=== PATIENT | male | born 1955 | race Caucasian/White ===

== ENCOUNTER 2017-06-15 18:28 | Observation (INO) ==
[2017-06-15 19:10] LABS: MANUAL DIFF NEEDED? NO
[2017-06-15 19:37] LABS: INR 0.88 (0.86-1.15); PROTIME 12.7 Seconds (12.1-15.5)
[2017-06-15 19:40] LABS: BASO% 0.1 % (0.0-0.8); EOS# 0.05 X1000 (0.0-0.7); EOS% 0.6 % (0.0-10.0); HEMATOCRIT 19.9 % (42.0-52.0); HEMOGLOBIN 6.1 g/dL (14.0-18.0); IMM GRAN# 0.03 X1000 (0.0-0.04); IMM GRAN% 0.4 % (0.0-0.5); LYMPH# 1.51 X1000 (1.2-3.4); LYMPH% 19.5 % (20.5-51.1); MCH 29.5 PG (27-31); MCHC 30.7 g/dL (33-37); MCV 96.1 FL (81-99); MONO# 0.57 X1000 (0.11-0.59); MONO% 7.4 % (1.7-9.3); PLT 265 X1000 (130-400); RBC 2.07 XMIL (4.7-6.1)
[2017-06-15 19:46] LABS: AGAP 10; ALBUMIN 3.8 g/dL (3.5-5.0); ALKALINE PHOSPHATASE 38 U/L (32-122); AMYLASE 58 U/L (20-200); BUN 42 mg/dL (8-22); CALCIUM 8.5 mg/dL (8.8-10.2); CHLORIDE 107 mmol/L (98-107); COSMO 294; GOT 18 U/L (10-34); GPT 19 U/L (10-44); LIPASE 49 U/L (13-60); POTASSIUM 5.8 mmol/L (3.5-5.1); SODIUM 139 mmol/L (136-145); TCO2 22 mmol/L (25-35); TOTAL BILIRUBIN < 0.15 mg/dL (0.20-1.00)
--- NOTE | 2017-06-15 20:11 | PROVIDER DOCUMENTATION ---
This chart was entered by Madisyn Evans Scribe, acting as scribe for Alessio Washington MD. HPI-General Adult - General Chief Complaint: Rectal Bleeding Stated Complaint: RECTAL BLEEDING Time Seen by Provider: 06/15/17 19:57 Source: patient Allergies/Adverse Reactions: Patient Allergies Allergy/AdvReac Type Severity Reaction Status Date / Time No Known Allergies Allergy Verified 06/15/17 18:42 Home Medications: Home Medication List Medication Instructions Recorded Confirmed Last Taken Type Aspirin [Lo-Dose Aspirin EC] 81 mg PO DAILY 06/15/17 06/15/17 06/15/17 History Atorvastatin Calcium [Atorvastatin 40 mg PO DAILY 06/15/17 06/15/17 06/15/17 History Calcium] Baclofen 20 mg PO Q6HR 06/15/17 06/15/17 06/15/17 History Fenofibrate [Fenofibrate] 160 mg PO DAILY 06/15/17 06/15/17 06/15/17 History Gabapentin 600 mg PO Q6HR 06/15/17 06/15/17 06/15/17 History Glimepiride [Glimepiride] 4 mg PO BID 06/15/17 06/15/17 06/15/17 History Losartan Potassium [Losartan 100 mg PO DAILY 06/15/17 06/15/17 06/15/17 History Potassium] Metoprolol Tartrate [Metoprolol 25 mg PO BID 06/15/17 06/15/17 06/15/17 History Tartrate] Pioglitazone HCl [Pioglitazone HCl] 15 mg PO DAILY 06/15/17 06/15/17 06/15/17 History Saxagliptin HCl/Metformin HCl 1,000 mg PO BID 06/15/17 06/15/17 06/15/17 History [Kombiglyze Xr 2.5-1,000 mg Tab] - History of Present Illness -Gen Adult Nature of Presenting Problems: 61 Y/O M presents to ER with the complain of rectal bleeding X1 week. pt states that he only bleeds when uses bathroom. pt states that he feels week and denies any active bleeding. Location of Pain/Injury: reports: genitalia (rectal bleeding) Pain Radiation: reports: no radiation Quality of Pain: reports: none Severity: reports: mild Onset/Duration: reports: 1 week ago Timing: reports: still present Associated Symptoms: reports: other (rectal bleeding) Review of Systems - Adult - REVIEW OF SYSTEMS - ADULT Constitutional: reports: no symptoms reported Eyes: reports: no symptoms reported Ears, Nose, Mouth & Throat: reports: no symptoms reported Cardiovascular: reports: no symptoms reported Respiratory: reports: no symptoms reported Gastrointestinal: reports: rectal bleeding. denies: nausea, vomiting Genitourinary: reports: no symptoms reported Musculoskeletal: reports: other (bilat leg weakness). denies: back pain Integumentary: reports: no symptoms reported Neurological: reports: no symptoms reported Psychiatric: reports: no symptoms reported Endocrine: reports: no symptoms reported Hematologic/Lymphatic: reports: no symptoms reported Allergic/Immunologic: reports: no symptoms reported All Other Systems: Reviewed and Negative Past History - Adult - PAST MEDICAL HISTORY-ADULT Review of Records: reports: Old Records Reviewed, Nursing Assessment Review, Medications Reviewed, Social history reviewed & non-contributory. Major Childhood Illnesses: reports: denies history Cardiovascular: reports: denies history Respiratory: reports: denies history Gastrointestinal: reports: denies history Genitourinary: reports: denies history Musculoskeletal: reports: denies history Neurological: reports: denies history Endocrine/Immune: reports: Diabetes (NIDDM) - PRIOR SURGERIES/PROCEDURES Surgical/Procedure History: reports: other (back, lympectomy, and stent) - IMMUNIZATION STATUS Childhood Immunizations: See Nurse Assessment Flu Vaccine: See Nurse Assessment Physical Exam-General - PHYSICAL EXAM-ADULT Initial Vital Signs Reviewed: Yes - CONSTITUTIONAL General Appearance: appears well, alert - EYES Eyes: PERRL/EOMI, pink conjunctivae - HEAD, EARS, NOSE, MOUTH & THROAT HENMT: moist mucous membranes, normal ENT inspection - NECK Neck: non-tender, full range of motion, supple - RESPIRATORY Respiratory: chest non-tender, lungs clear, normal breath sounds - CARDIOVASCULAR Cardiovascular: normal peripheral pulses, regular rate, rhythm - GASTROINTESTINAL (ABDOMEN) Abdominal Exam: normal bowel sounds, non tender, soft - GENITOURINARY Rectal Exam: hemorrhoids (internal). negative: blood streaked stool, mass, tenderness - MUSCULOSKELETAL Back Exam: normal inspection, no CVA tenderness, no vertebral tenderness Extremity: other (bilat leg weakness). negative: swelling, tenderness - SKIN Integumentary: normal color, normal turgor, warm/dry - NEUROLOGIC Neurologic: grossly normal, no motor/sensory deficits - PSYCHIATRIC Psych/Mental Status: normal mood/affect, normal thought content, normal thought process, oriented x 3 Progress - PLAN OF CARE/RESULTS Progress/Plan/Lab Results: Vital Signs - 8 hr 06/15/17 18:34 Temperature 97.8 F Pulse Rate 91 H Respiratory Rate 18 Blood Pressure 157/063 O2 Sat by Pulse Oximetry 95 Laboratory Results - last 24 hr 06/15/17 06/15/17 06/15/17 18:55 18:55 18:55 WBC 7.73 RBC 2.07 L Hgb 6.1 L Hct 19.9 L MCV 96.1 MCH 29.5 MCHC 30.7 L RDW Std Deviation 16.0 H Plt Count 265 MPV 10.0 Immature Gran % (Auto) 0.4 Neut % (Auto) 72.0 Lymph % (Auto) 19.5 L [place] % (Auto) 7.4 Eos % (Auto) 0.6 Baso % (Auto) 0.1 Immature Gran # (Auto) 0.03 Neut # (Auto) 5.56 Lymph # (Auto) 1.51 [place] # (Auto) 0.57 Eos # (Auto) 0.05 Baso # (Auto) 0.01 PT 12.7 INR 0.88 APTT (Factor Assay) 32.0 Sodium 139 Potassium 5.8 H Chloride 107 Carbon Dioxide 22 L Anion Gap 10 BUN 42 H Creatinine 2.4 H Estimated GFR/1.73 m2 27 BUN/Creatinine Ratio 18 Glucose 214 H Calculated Osmolality 294 Calcium 8.5 L Total Bilirubin < 0.15 L AST 18 ALT 19 Alkaline Phosphatase 38 Total Protein 6.0 L Albumin 3.8 Globulin 2.0 Albumin/Globulin Ratio 2.0 Amylase 58 Lipase 49 Orders Category Date Time Status Saline Loc DIRECTED Care 06/15/17 18:57 Active NPO Diet 06/15/17 18:57 Active AMYLASE [CHEM] Stat Lab 06/15/17 18:55 Completed CBC WITH ELECTRONIC DIFF [HEME] Stat Lab 06/15/17 18:55 Completed COMPREHENSIVE METABOLIC PANEL [CHEM] Stat Lab 06/15/17 18:55 Completed LIPASE [CHEM] Stat Lab 06/15/17 18:55 Completed OCCULT BLOOD NON-FECES PL Stat Lab 06/15/17 18:57 Uncollected OCCULT BLOOD SCREEN STOOL PL Stat Lab 06/15/17 18:57 Uncollected PROTIME WITH INR PL [COAG] Stat Lab 06/15/17 18:[address] [COAG] Stat Lab 06/15/17 18:55 Completed TYPE & SCREEN [BBK] Stat Lab 06/15/17 18:[address] W/POSS RFLX CULT [URINALYSIS] Stat Lab 06/15/17 18:57 Uncollected 0.9% Sodium Chloride Inj [Ns] 1,000 ml Med 06/15/17 18:57 Active IV 125 mls/hr Result Diagrams: 06/15/17 18:55 06/15/17 18:55 - EKG 1 Time of EKG reading by physician:: 20:42 EKG Read and Signed by:: Alessio Washington EKG Interpretation (*Must complete 3 of following elements*): Normal Rate: 87 Rhythm: Sylvia Sinus Comments: Normal ECG - CONSULTS/PCP/HOSPITALIST Notification #1 *Consult/PCP/Hospitalist*: Dr. Sands Time Discussed: 20:17 Reason/Comments: discussed about pt Consult Disposition: Admit, other (observation) Departure - Departure Date of Disposition Decision: 06/15/17 Time of Disposition Decision: 20:10 DIAGNOSIS: Severe anemia, Paraplegia CAD (coronary artery disease) Qualifiers: Coronary Disease-Associated Artery/Lesion type: unspecified vessel or lesion type [place] vs. transplanted heart: [place] heart Associated angina: without angina Qualified Code(s): I25.10 - Atherosclerotic heart disease of [place] coronary artery without angina pectoris Hemorrhoids Qualifiers: Hemorrhoid type: unspecified Qualified Code(s): K64.9 - Unspecified hemorrhoids Disposition: ADMITTED INPATIENT 09 Certified Medical Emergency: Emergent Condition: Stable - Critical Care Note This patient required my direct & personal management of CC.: Yes Attestation - Physician/ SHILPA Attestation Patient care was provided by Advanced Practice Provider:: No The physician spent face to face time with patient:: Yes Advanced Practice Provider documentation review:: Supervising physician onsite and consulted in the evaluation and care of this patient. The physician did have a face to face encounter with the patient. This chart was documented by the indicated scribe, (Madisyn Evans Scribe) and accurately reflects the services I performed and decisions made by me, Alessio Washington MD, as attested by the provider's signature.
--- NOTE | 2017-06-15 20:47 | EKG Report ---
Test Performed on : 06/15/2017 8:42:42 PM Test Reason : CP Blood Pressure : / mmHG Vent. Rate : 087 BPM Atrial Rate : 087 BPM P-R Int : 184 ms QRS Dur : 086 ms QT Int : 352 ms P-R-T Axes : 072 016 046 degrees QTc Int : 423 ms Normal sinus rhythm. Normal ECG No previous ECGs available Unconfirmed Result
[2017-06-15 20:48] LABS: URINE CULTURE PL NEEDED? NO
[2017-06-15 21:02] LABS: BILIRUBIN URINE NEGATIVE (NEGATIVE); BLOOD URINE NEGATIVE (NEGATIVE); CLARITY CLEAR (CLEAR); COLOR YELLOW; LEUKOCYTES URINE NEGATIVE (NEGATIVE); NITRITE URINE NEGATIVE (NEGATIVE); PROTEIN URINE 2+(100 mg/dL) mg/dL (NEGATIVE); URINE CAST NONE SEEN /LPF; URINE CRYSTAL NONE SEEN /HPF; URINE EPITHELIAL CELLS <10 /HPF (<10); URINE SOURCE CLEAN CATCH; URINE WBC <10 /HPF (<10); UROBILINOGEN URINE NORMAL
[2017-06-15] MEDS ORDERED: NS 250 ML ONE (23:16)
[2017-06-16] MEDS: NS 1,000 ML IV PRN ×2 (05:56→15:02)
[2017-06-16 07:00] LABS: IRON SATURATION 10 %; TIBC 391 ug/dL; TOTAL IRON 38 ug/dL (53-167); UNBOUND IRON 353 ug/dL (112-346)
[2017-06-16 07:10] LABS: RETIC-HE 33.7 PG (28.2-36.6)
[2017-06-16 08:45] LABS: BASO% 0.1 % (0.0-0.8); EOS# 0.08 X1000 (0.0-0.7); EOS% 1.1 % (0.0-10.0); HEMATOCRIT 27.5 % (42.0-52.0); HEMOGLOBIN 8.9 g/dL (14.0-18.0); IMM GRAN# 0.04 X1000 (0.0-0.04); IMM GRAN% 0.5 % (0.0-0.5); LYMPH# 1.36 X1000 (1.2-3.4); LYMPH% 18.2 % (20.5-51.1); MANUAL DIFF NEEDED? YES; MCH 29.4 PG (27-31); MCHC 32.4 g/dL (33-37); MCV 90.8 FL (81-99); MONO# 0.73 X1000 (0.11-0.59); MONO% 9.8 % (1.7-9.3); MPV 10.4 FL (7.4-10.4); NEUT% 70.3 % (42.2-75.2); PLT 196 X1000 (130-400); RBC 3.03 XMIL (4.7-6.1)
[2017-06-16 08:59] LABS: LYMPHS 23 % (21-51); MONO 3 % (1-9)
[2017-06-16 09:13] LABS: OCCULT BLOOD 1 POSITIVE (NEGATIVE)
[2017-06-16 09:35] LABS: CALCIUM 8.4 mg/dL (8.8-10.2)
[2017-06-16 09:42] LABS: HEMOGLOBIN A1C 6.5 % (4.8-6.0)
--- NOTE | 2017-06-16 10:00 | PROGRESS NOTE ---
DATE: 06/16/2017 SUBJECTIVE: Today, Mr. Contreras referred to be doing a whole lot better. He had 2 units of P-RBCs. OBJECTIVE: Vital Signs: Blood pressure is 169/49, pulse of 79, respirations are 18, temperature is 98.4 degrees. General Examination: Mr. Contreras is a 61-year-old, male. He is in bed, not seemingly distressed. HEENT: Mucosa is pink and moist. Anicteric and acyanotic. Neck: Supple. Chest: Clear. No crepitations. Cardiovascular: Regular rate and rhythm. Abdomen: Soft, nontender. Extremities: About 2+ pedal edema. STAGE ELECTRICIAN HELPER: Patient is awake, alert, and oriented. He is a paraplegic secondary to a previous thoracic spine injury. Laboratory Data: WBC is 7.47, hemoglobin is 8.9, platelet count of 197,000. Chemistry is reviewed, unremarkable except for creatinine of 2.4. ASSESSMENT: 1. Symptomatic anemia secondary to chronic gastrointestinal blood loss. Patient is status post 2 units of packed RBC transfusion. We will continue monitoring his hemoglobin and hematocrit. 2. History of coronary artery disease, status post stents noted. 3. Paraplegia due to thoracic spine injury in the past. 4. Diabetes mellitus. We will do a hemoglobin A1c to know how best his sugar has been controlled in the past. 5. Hemorrhoidal bleed. We will get surgery to evaluate the patient for possible surgical intervention if needed. PLAN: We are going to start the patient on all his home medications. We will continue with adequate hydration. We will do a renal ultrasound to check on the renal insufficiency. cc: Vincent Sands MD I went back to review patient later today. He said he is aware of his CKD and follows up with a Concierge Manager in [place]. [facility]
[2017-06-16] MEDS: HUMULIN R SUBQ SCH ×3 (11:04→21:35)
[2017-06-16] MEDS: ANUSOL-HC SUPP PR SCH ×2 (11:16→20:48)
[2017-06-16 11:32] LABS: UR CREAT RANDOM 103.6 mg/dL (14-26)
--- NOTE | 2017-06-16 11:34 | HISTORY AND PHYSICAL ---
PRIMARY CARE PHYSICIAN: Dr. Avila. PRESENTING COMPLAINT: Rectal bleed. HISTORY OF PRESENTING COMPLAINT: Mr. Contreras is a 61-year-old male with a history of paraplegia for the past 5 years, coronary artery disease status post stents since 2000, hypertensive, diabetic, who refers to have been having rectal bleed for the past week. According to Mr. Contreras any time he uses the restroom he would wipe with anat blood on the tissue and since 3 years ago he has been having general fatigue, weakness, occasional dizzy spells whenever he tries to transfer himself from a lying position to a sitting up position. This got so worse that he decided to come to the emergency department yesterday, where he was found to have a hemoglobin level of 6.1 and was deemed necessary for admission. PAST MEDICAL HISTORY: 1. Thoracic cord dissection residual paraplegia. 2. Coronary artery disease status post stents. 3. History of melanoma on the right armpit. 4. Hypertensive. 5. Diabetic. PAST SURGICAL HISTORY: 1. Thoracic vertebra surgery with rods for spine stabilization. 2. Stent in the coronary. 3. Removal of melanoma on right arm. ALLERGIES: None. HOME MEDICATIONS: Include: 1. Gabapentin 600 mg q.6. 2. Baclofen 20 mg q.6. 3. Losartan 100 mg daily. 4. Atorvastatin 40 mg daily. 5. Metoprolol 25 mg b.i.d. 6. Glimepiride 4 mg b.i.d. 7. and metformin. 8. Aspirin 81 mg daily. 9. Pioglitazone 15 mg daily. SOCIAL HISTORY: Patient is . Lives with his . Has kids that are all grown. Has a 30 pack year history but stopped smoking about 10 years ago. Denies alcohol or any illicit drug use. REVIEW OF SYSTEMS: Fourteen point review of system conducted with the patient. Unremarkable except what we have in the HPI. Specifically, patient denies any hematemesis. No coffee ground emesis. No melenic stool. No abdominal pain. No chest pain. No shortness of breath. PHYSICAL EXAMINATION: VITAL SIGNS: Blood pressure is 169/49, respiration is 18, pulse is 79, temperature is 98.4 degrees. GENERAL: Mr. Contreras is a 61-year-old male. He is in bed, not seemingly distressed. HEENT: Mucosa is pink and moist. Anicteric. Acyanotic. Head is normocephalic and atraumatic NECK: Supple. There is no JVD. CHEST: Good air entry bilaterally. No crepitations. No rhonchi. There is no accessory muscle use and no intercostal muscle retractions. CARDIOVASCULAR: Regular rate and rhythm. There are no murmurs, no rubs, no gallops. [place] is at the 5th intercostal space, midclavicular line. ABDOMEN: Soft, nontender. There is no hepatosplenomegaly. Bowel sounds are present. No scars on the anterior abdominal wall. RECTAL: There are multiple skin tags around the anal verge consistent with hemorrhoids. EXTREMITIES: About 2+ pedal edema. Distal pulses are present. CLIENT INSIGHTS CONSULTANT: Patient is awake, alert, oriented x4. Executive function seems to be intact. Did not explore cerebellar function. Cranial nerves 2 through 12 have grossly examined and they are unremarkable. Power is about 2+/5 in the lower extremities. There is a little bit more power on the left lower extremity than the right. All modality of sensation is reduced in the lower extremities. Upper extremities have normal power and sensation. PSYCH: Patient has good judgment and insight of his illness. LABORATORY DATA: WBC is 7.49, hemoglobin is 8.9; this is after 2 PRBC transfusion. Platelet count is 196,000. There are 74% of neutrophils, 23% of lymphocytes, 1+ anisocytosis, and 1+ microcytosis. There is 6.65% reticulocyte count. Chemistry: Sodium is 139, potassium is 5.8, chloride is 107, bicarb is 22, creatinine is 2.5. No imaging studies done today. EKG which was done on presentation shows normal sinus rhythm, normal axis, and no acute EKG changes. ASSESSMENT: Mr. Contreras is a 61-year-old male with a history of coronary artery disease and paraplegia, who presented to the emergency department were rectal bleed with symptoms. 1. Symptomatic anemia secondary to rectal bleed. 2. Rectal bleed due to Internal and external hemorrhoids. 3. Renal insufficiency. Unsure of the duration of this. We will do urine studies to better quantify that. 4. Iron deficiency anemia secondary to chronic blood loss from gastrointestinal tract. 5. Paraplegia secondary to thoracic spine injury, noted. 6. History of coronary artery disease with 3 stents, noted. 7. Diabetes mellitus, controlled. 8. Hypertension. PLAN: So today Mr. Contreras has been given 2 PRBC transfusion. Hemoglobin and hematocrit seem to be stable. Rectal exam shows significant hemorrhoidal lesions in the rectum. Will give the patient some Anusol HC for that. We will continue doing serial hemoglobin and hematocrit to see if he needs any more transfusion. We will ask surgery to evaluate the patient tomorrow morning to see if they would want to do any intervention on the hemorrhoids. If no surgical intervention and hemoglobin and hematocrit continue to be stable, I think Mr. Contreras can be discharged, for him to follow up with GI for evaluation of the GI tract. In terms of the renal insufficiency, we do not have anything in the chart to compare his renal function. We will do a urinalysis and do a renal ultrasound to give us some idea about why the creatinine is elevated. According to the patient he makes urine okay. cc: Vincent Sands MD Review: Repeated H and H stable Renal insufficiency is chronic patient follows up with Fret Saw Operator is [place]. Patient can be discharged tomorrow to follow up with surgery and GI on outpatient basis. I have discussed this plan with him and the and they both in agreement. [facility]
[2017-06-16] MEDS ORDERED: NEURONTIN PO SCH ×2 (12:00→14:00)
[2017-06-16] MEDS: LIORESAL PO SCH ×3 (12:02→23:51)
[2017-06-16] MEDS: NEURONTIN PO SCH ×3 (12:02→23:51)
--- NOTE | 2017-06-16 12:10 | Diag Imaging Result Doc PS360 ---
EXAM: US RENAL 2 (RETROPER) COMPLETE - 06/16/2017 HISTORY: suyapa/arf TECHNIQUE: Bilateral renal ultrasound COMPARISON: None. FINDINGS: The right kidney measures 11.9 x 5.7 x 6 cm in size. The left kidney measures 12.3 x 5.7 x 7.3 cm in size. There is an 8.7 x 8.2 x 6.5 cm cyst which arises at the lower left kidney. There is no solid renal mass or hydronephrosis identified. There is no renal stone identified. Images of the urinary bladder demonstrate no lesion. IMPRESSION: 8.7 cm in maximum dimension cyst at lower left kidney. No other visible renal abnormality. No hydronephrosis. Electronically signed by Poli Mcclure 06/16/2017 12:07 PM
[2017-06-16] MEDS ORDERED: LIORESAL PO SCH (14:00)
[2017-06-16 14:53] LABS: HEMATOCRIT 28.7 % (42.0-52.0); HEMOGLOBIN 9.2 g/dL (14.0-18.0)
[2017-06-16] MEDS ORDERED: LASIX IV ONE (15:56)
[2017-06-16] MEDS ORDERED: LIPITOR PO SCH (16:00)
[2017-06-16] MEDS: ASPIRIN EC PO SCH (16:10)
[2017-06-16] MEDS: COZAAR PO SCH (16:10)
[2017-06-16] MEDS: ACTOS PO SCH (16:10)
[2017-06-16 16:14] LABS: FERRITIN 36 ng/mL (30-400)
--- NOTE | 2017-06-16 16:28 | Diag Imaging Result Doc PS360 ---
EXAM: CHEST-PORTABLE - 06/16/2017 HISTORY: Shortness of breath TECHNIQUE: Portable chest 4:16 PM COMPARISON: None. FINDINGS: Heart size appears borderline enlarged. There is mild prominence of interstitial markings. There is no dense consolidation, pleural effusion, or pneumothorax identified. There is subsegmental atelectasis or scarring versus artifact at the medial right upper lobe. IMPRESSION: Borderline cardiomegaly. Mild prominence of interstitial markings which may relate to mild interstitial edema or pneumonitis. No discrete pneumonia. Electronically signed by Poli Mcclure 06/16/2017 4:25 PM
[2017-06-16] MEDS ORDERED: LOPRESSOR PO SCH ×2 (18:00→21:00)
[2017-06-16] MEDS: AMARYL PO SCH (18:01)
[2017-06-16] MEDS: PATIENT'S OWN MED PO SCH (18:02)
[2017-06-16] MEDS: TRICOR PO SCH (18:05)
--- NOTE | 2017-06-16 19:43 | CONSULTATION ---
DATE OF CONSULTATION: 06/16/2017 CHIEF COMPLAINT: Bleeding hemorrhoids. HISTORY: 61-year-old gentleman with a history of paraplegia dating back approximately 5 years. He recently about the past week or so has been suffering from bleeding with bowel movements. The bleeding does not occur while he is sitting up in a chair but only after he has a bowel moment he has bleeding. He has bled to the point that his hemoglobin was 6.1 upon admission requiring transfusion. He has not had this problem until recently. OTHER MEDICAL PROBLEMS: Include coronary artery disease, a history of melanoma on the right arm, hypertension, diabetes. PREVIOUS SURGERY: Includes surgery to his thoracic vertebra from the slipped disk, stents in his coronary and a melanoma removal in the right arm. MEDICATIONS: At home include gabapentin, baclofen, losartan, atorvastatin, metoprolol, glimepiride, aspirin, pioglitazone. ALLERGIES: He has no known drug allergies. SOCIAL HISTORY: He is . Denies alcohol usage. He no longer smokes. REVIEW OF SYSTEMS: Negative for constipation. His bowels move spontaneously without having to require any instrumentation. All of his other subsystems are negative except urologic system. PHYSICAL EXAMINATION: Vital Signs: He is afebrile, heart rate 94, respiratory rate 18, blood pressure 142/61. Neck: No adenopathy. Lungs: Bilateral breath sounds. Heart: Regular rate, rhythm. Abdomen: Soft. Back: He is paraplegic in the midthoracic spine area. Rectal: On examination he has some external hemorrhoids. There is no obvious bleeding at this time. Rectal exam reveals no hard masses. No blood was noted on the examining finger. ASSESSMENT: No doubt this is external and internal hemorrhoids with excoriation. I think treatment with Anusol HC will be helpful but may not be enough to resolve the issue. I think he would be a good candidate for the stapled hemorrhoidectomy and I have discussed this with him. However I think that his issue regarding his kidney function must be resolved. I think I would recommend that he come back and see me as an outpatient at which time we could decide if in fact he needs to proceed with a formal procedure for his hemorrhoids or not. cc: Seth Zhu MD
[2017-06-16] MEDS ORDERED: PATIENT'S OWN MED PO SCH (21:00)
[2017-06-16] MEDS ORDERED: AMARYL PO SCH (21:00)
[2017-06-17 04:40] LABS: RETIC% 6.65 % (0.8-2.1)
[2017-06-17] MEDS: NEURONTIN PO SCH ×2 (05:56→11:34)
[2017-06-17] MEDS: LIORESAL PO SCH ×2 (05:57→11:34)
[2017-06-17] MEDS ORDERED: HUMULIN R (PARKWAY) SUBQ SCH (07:04)
[2017-06-17 07:18] LABS: HEMATOCRIT 27.6 % (42.0-52.0); HEMOGLOBIN 8.9 g/dL (14.0-18.0)
[2017-06-17 07:45] LABS: CALCIUM 8.6 mg/dL (8.8-10.2); POTASSIUM 4.9 mmol/L (3.5-5.1)
[2017-06-17] MEDS ORDERED: LOPRESSOR PO SCH (08:00)
[2017-06-17] MEDS: TRICOR PO SCH (08:08)
[2017-06-17] MEDS: AMARYL PO SCH (08:08)
[2017-06-17] MEDS: COZAAR PO SCH (08:08)
[2017-06-17] MEDS: PATIENT'S OWN MED PO SCH (08:09)
[2017-06-17] MEDS: ASPIRIN EC PO SCH (08:09)
[2017-06-17] MEDS: ACTOS PO SCH (08:09)
[2017-06-17] MEDS: ANUSOL-HC SUPP PR SCH (08:09)
[2017-06-17 12:29] VITALS: BP 134/54
[2017-06-17] MEDS ORDERED: LIPITOR PO SCH (21:00)
--- NOTE | 2017-06-18 06:50 | DISCHARGE SUMMARY ---
ADMISSION DATE: 06/15/2017 DISCHARGE DATE: 06/17/2017 DISCHARGE DIAGNOSES: 1. Symptomatic anemia. 2. External internal hemorrhoids. 3. Renal insufficiency. 4. Acute kidney injury. 5. Iron deficiency anemia. 6. Paraplegia. 7. History of CAD. 8. Diabetes. 9. Hypertension. DISCHARGE DIAGNOSES: 1. Symptomatic anemia. 2. External internal hemorrhoids. 3. Renal insufficiency. 4. Acute kidney injury. 5. Iron deficiency anemia. 6. Paraplegia. 7. History of CAD. 8. Diabetes. 9. Hypertension. CONSULTATIONS: Dr. Zhu for external hemorrhoids. PROCEDURES: None. HISTORY OF PRESENT ILLNESS: Briefly, this is a 61-year-old male with a paraplegia secondary to thoracic injuries, CAD. I think he probably has some degree of chronic renal insufficiency. He came in for treatment. Initial hemoglobin and hematocrit was 6 and 19. He was given 2 units of blood initially 8 and 27, went up to 9 and 28, and is 8.9 and 27.7 at the time of discharge. After hydration, creatinine also went from 2.4-1.6. A1c is only 6.5. He did have heme-positive stools, but he was noted to have internal and external hemorrhoids. Dr. Zhu was consulted and recommended outpatient follow up for steroids. He does have some chronic renal insufficiency and he is seeing a coin machine servicer repairer in [place], although he states it sounds like that he was released from their care. In any case, the patient is clinically stable. No significant bleeding, but he does have some intermittent bleeding when he has bowel movements but was felt clinically stable for discharge. DISCHARGE MEDICATIONS: 1. Aspirin. I think were going to have to hold until he follows up with Dr. Zhu. 2. Atorvastatin 40. 3. Baclofen 20 every 6 hours. 4. Fenofibrate 160 daily. 5. Gabapentin 600 every 6 hours. 6. Glimepiride 4 b.i.d. 7. Losartan 100 daily, I think he can resume that. 8. Metoprolol 25 b.i.d. The saxagliptin, metformin though he is going to have to hold and we are just going to put him on Januvia daily. The only reason being his renal insufficiency will preclude him from him being on metformin. I did advise that he needs to follow up with his PCP, Dr. Avila, next week for repeat labs. He can resume his medications at that time. We will also give him Anusol cream, recommend sitz baths, and astringent as needed and we will follow. FOLLOWUP CARE: He was told to return for worsening bleeding. We will set him up with Dr. Zhu in 1-2 weeks for an evaluation for hemorrhoidectomy. TIME SPENT ON DISCHARGE: 35 minute discharge. cc: MD Seth Nava MD
== END 2017-06-17 15:30 | disposition home or self-care (01) ==
LOC: P.MEDSURG 18:28 → P.ED 18:28 → SUATTDRO 20:42
PROVIDERS: ATTEND Internal Medicine

== ENCOUNTER 2019-09-22 11:11 | Inpatient (IN) ==
--- NOTE | 2019-09-22 11:20 | PROVIDER DOCUMENTATION ---
HPI-General Adult - General Chief Complaint: Sores/Lesions Stated Complaint: LT FOOT PAIN Time Seen by Provider: 09/22/19 11:13 Source: patient Allergies/Adverse Reactions: Patient Allergies Allergy/AdvReac Type Severity Reaction Status Date / Time No Known Allergies Allergy Verified 01/18/19 20:11 Home Medications: Home Medication List Medication Instructions Recorded Confirmed Last Taken Type Amitriptyline [Elavil] 10 mg PO TID 09/13/19 09/22/19 Unknown History Amlodipine [Norvasc] 5 mg PO DAILY 09/13/19 09/22/19 Unknown History Aspirin [Aspir-Low] 81 mg PO DAILY 09/13/19 09/22/19 Unknown History Atorvastatin Calcium [Lipitor] 40 mg PO DAILY 09/13/19 09/22/19 Unknown History Baclofen 10 mg PO TID 09/13/19 09/22/19 Unknown History Carvedilol 6.25 mg PO BID 09/13/19 09/22/19 Unknown History Furosemide 40 mg PO BID 09/13/19 09/22/19 Unknown History Levofloxacin [Levaquin] 250 mg PO DAILY #10 tab 09/13/19 09/22/19 Unknown Rx Cefdinir 1 cap PO BID 09/22/19 09/22/19 Unknown History Iron Fum,Ps/Folic/Bcomp,C No.9 1 cap PO DAILY 09/22/19 09/22/19 Unknown History [Folivane-Plus Capsule] Torsemide 1 tab PO DAILY 09/22/19 09/22/19 Unknown History - History of Present Illness -Gen Adult Nature of Presenting Problems: Pt. is 64 yom that presents with c/o left foot swelling and pain. Pt. reports his PCP has been treating a celluilitis with ABX and his foot is getting worse. He denies any injury but states he is diabetic. He reports his swelling is going up his leg and that is why his made him come to the ED. Location of Pain/Injury: reports: lower extremity, feet. denies: none, head, face, mouth, neck, chest, upper extremity, hand(s), abdomen, back, pelvis, genitalia, upper body, lower body, generalized, other Pain Radiation: reports: no radiation. denies: arm(s), back, buttocks, chest, epigastric, feet, groin, jaw, flank (L), legs (lower), LLQ, LUQ, neck, periumbilical, flank (R), RLQ, RUQ, shoulder(s), scapula, scrotal, sternal notch, suprapubic, legs (upper), urethral, vaginal, other Quality of Pain: reports: aching, pressure. denies: burning, stabbing, throbbing, tightness Severity: reports: moderate. denies: mild, severe Onset/Duration: reports: unsure, gradual Timing: reports: still present. denies: improving, intermittent, getting worse Context/Activities at Onset: reports: none. denies: light activity, moderate activity, vigorous activity, recent emotional stress, recent physical stress, recent trauma history, possible bad food, cold exposure, eating, out of country travel, rest, sleep, sexual activity, other Modifying Factors: improves with: nothing Associated Symptoms: reports: weakness, trouble walking. denies: denies symptoms, anxiety, arm pain, back/neck pain, chest pain, constipation, cough, diaphoresis, diarrhea, dizziness, EENT symptoms, fatigue, fever/chills, genitourinary problems, headaches, heartburn, joint pain, loss of appetite, malaise, muscle aches, sinus congestion/drainage, nausea, rash, seizure, shortness of breath, sensory/motor loss, pain with inspiration, swelling/mass in abdomen, syncope, vomiting, other Similar Symptoms Previously?: Yes Recently seen or treated by another doctor?: Yes Review of Systems - Adult - REVIEW OF SYSTEMS - ADULT Constitutional: reports: no symptoms reported Eyes: reports: no symptoms reported Ears, Nose, Mouth & Throat: reports: no symptoms reported Cardiovascular: reports: see HPI, edema, poor circulation. denies: chest pain, irregular heart rate, orthopnea Respiratory: reports: no symptoms reported Gastrointestinal: reports: no symptoms reported Genitourinary: reports: no symptoms reported Musculoskeletal: reports: see HPI, muscle weakness. denies: bone pain, joint pain, neck pain Integumentary: reports: see HPI, skin sores/ulcer. denies: hair loss, nail changes, skin thickening Neurological: reports: no symptoms reported Psychiatric: reports: no symptoms reported Past History - Adult - PAST MEDICAL HISTORY-ADULT Review of Records: reports: Old Records Reviewed, Nursing Assessment Review, Medications Reviewed, Social history reviewed & non-contributory. Major Childhood Illnesses: reports: denies history Cardiovascular: reports: denies history Respiratory: reports: denies history Gastrointestinal: reports: denies history Genitourinary: reports: denies history Musculoskeletal: reports: denies history Neurological: reports: denies history Endocrine/Immune: reports: Diabetes (NIDDM) - PRIOR SURGERIES/PROCEDURES Surgical/Procedure History: reports: other (back, lympectomy, and stent) - IMMUNIZATION STATUS Childhood Immunizations: See Nurse Assessment Flu Vaccine: See Nurse Assessment - FAMILY HISTORY Family History: reviewed, not pertinent - SOCIAL HISTORY Smoking: denies Physical Exam-General - PHYSICAL EXAM-ADULT Initial Vital Signs Reviewed: Yes - CONSTITUTIONAL General Appearance: alert, mild distress, thin. negative: anxious, slow to respond, obtunded, combative - EYES Eyes: PERRL/EOMI, pink conjunctivae - HEAD, EARS, NOSE, MOUTH & THROAT HENMT: normocephalic/atraumatic, moist mucous membranes - NECK Neck: non-tender, full range of motion, supple, normal inspection - RESPIRATORY Respiratory: lungs clear, normal breath sounds - CARDIOVASCULAR Cardiovascular: regular rate, rhythm, no edema, tachycardia. negative: extra beats, friction rub, irregularly irregular - GASTROINTESTINAL (ABDOMEN) Abdominal Exam: normal bowel sounds, non tender, soft - LYMPHATIC Lymphatic: no adenopathy - MUSCULOSKELETAL Back Exam: normal inspection Extremity: inflammation (Left lower extremity from the knee down), swelling ( Bilateral lower extremity edema), tenderness (Bilateral lower extremity). negative: deformity Peripheral Pulses: radial (R): 2+, radial (L): 2+ - SKIN Integumentary: erythema (Left lower extremity), swelling (Pitting edema to the right lower extremity and taught left lower extremity from edema that is weeping.), tenderness (Left lower extremity), other (The toes on the left lower extremity are cold to the touch with delayed capillary refill). negative: cyanosis - NEUROLOGIC Neurologic: grossly normal, no motor/sensory deficits. negative: aphasia, faci al droop, focal weakness, motor weakness, sensory deficit - PSYCHIATRIC Psych/Mental Status: normal mood/affect, normal thought content, normal thought process, oriented x 3. negative: anxious, paranoid, tearful Progress - PLAN OF CARE/RESULTS Progress/Plan/Lab Results: Vital Signs - 8 hr 09/22/19 11:14 Temperature 97.5 F L Pulse Rate 103 H Respiratory Rate 18 Blood Pressure 134/59 O2 Sat by Pulse Oximetry 95 Laboratory Tests 09/22/19 09/22/19 09/22/19 11:35 11:35 11:35 WBC 21.99 H RBC 2.77 L Hgb 7.7 L Hct 23.8 L MCV 85.9 MCH 27.8 MCHC 32.4 L RDW Std Deviation 12.6 Plt Count 495 H MPV 8.8 Immature Gran % (Auto) 0.5 Neut % (Auto) 90.4 H Lymph % (Auto) 4.5 L [place] % (Auto) 4.5 Eos % (Auto) 0.1 Baso % (Auto) 0.0 Immature Gran # (Auto) 0.11 H Neut # (Auto) 19.86 H Lymph # (Auto) 1.00 L [place] # (Auto) 0.99 H Eos # (Auto) 0.02 Baso # (Auto) 0.01 Sodium 132 L Potassium 4.8 Chloride 93 L Carbon Dioxide 24 L Anion Gap 15 BUN 61 H Creatinine 3.4 H Estimated GFR/1.73 m2 18 BUN/Creatinine Ratio 18 Glucose 300 H POC Glucose Calculated Osmolality 293 Calcium 7.9 L Total Bilirubin 0.25 AST 62 H ALT 42 Alkaline Phosphatase 146 H Creatine Kinase 161 Srv-E-Kzrusnfuytf Pept 35095 H Total Protein 5.9 L Albumin 2.3 L Globulin 3.6 Albumin/Globulin Ratio 0.6 Plasma Lactate Urine Source Urine Color Urine Turbidity Urine pH Ur Specific [place] Urine Protein Ur Glucose (Stick) Ur Ketones (Stick) Urine Blood Urine Nitrite Urine Bilirubin Urobilinogen Dipstick Urine Leukocytes Urine WBC (Auto) Urine RBC (Auto) U Epithel Cells (Auto) Urine Bacteria (Auto) 09/22/19 09/22/19 09/22/19 11:35 11:56 12:16 WBC RBC Hgb Hct MCV MCH MCHC RDW Std Deviation Plt Count MPV Immature Gran % (Auto) Neut % (Auto) Lymph % (Auto) [place] % (Auto) Eos % (Auto) Baso % (Auto) Immature Gran # (Auto) Neut # (Auto) Lymph # (Auto) [place] # (Auto) Eos # (Auto) Baso # (Auto) Sodium Potassium Chloride Carbon Dioxide Anion Gap BUN Creatinine Estimated GFR/1.73 m2 BUN/Creatinine Ratio Glucose POC Glucose 344 H D Calculated Osmolality Calcium Total Bilirubin AST ALT Alkaline Phosphatase Creatine Kinase Zol-A-Hdgvckdcdch Pept Total Protein Albumin Globulin Albumin/Globulin Ratio Plasma Lactate 2.6 H Urine Source CLEAN CATCH Urine Color YELLOW Urine Turbidity CLEAR Urine pH 6.0 Ur Specific [place] 1.015 Urine Protein 300 A Ur Glucose (Stick) 300 A Ur Ketones (Stick) NEGATIVE Urine Blood TRACE A Urine Nitrite NEGATIVE Urine Bilirubin NEGATIVE Urobilinogen Dipstick NORMAL Urine Leukocytes NEGATIVE Urine WBC (Auto) <10 Urine RBC (Auto) <10 U Epithel Cells (Auto) <10 Urine Bacteria (Auto) NEGATIVE Discussed results and plan of care with patient. Patient agrees with plan and verbalizes understanding. Result Diagrams: 09/22/19 11:35 09/22/19 11:35 - XRAY 1 XRAY: Left XRAY Study: Foot [facility] - [address], [address], [place] [address] [facility] - [address] [place] [address] Department of Imaging Patient: VISHNU DE LEON Date: 09/22/19MR#: [id number] : 1955DM [id number] Age/Sex: 64/MRoom/Bed: Loc: ED Ordering Physician: Deacon Jeong Family Physician: Darrel Avila MD Reason for Procedure: infection Signed EXAM: FOOT COMPLETE LEFT 09/22/2019 HISTORY: infection TECHNIQUE: Left foot three views COMMENT: There is generalized osteopenia. There is extensive arterial calcification. There is soft tissue swelling over the dorsum of the foot. There is no evidence of acute fracture or dislocation periosteal reaction or erosion. IMPRESSION: Osteoporosis and atherosclerosis. The possibility of cellulitis cannot be excluded. Electronically signed by Obi Wilks 09/22/2019 12:01 PM 09/22/19 1201 Interpreting Physician: Obi Wilks MD Dictated Date/Time: 09/22/19 1200 cc: Deacon Jeong; Darrel Avila MD) XRAY Interpretation: See note 2 XRAY Study: Chest ([facility] - [address] , [address], [place] [address] [facility] - [address] [place] [address] Department of Imaging Patient: VISHNU DE LEON Date: 09/22/19MR#: [id number] : 1955DM Status: REG [facility]#: [id number] Age/Sex: 64/MRoom/Bed: Loc: ED Ordering Physician: Deacon Jeong Family Physician: Darrel Avila MD Reason for Procedure: weakness Signed EXAM: CHEST-PORTABLE 09/22/2019 HISTORY: weakness TECHNIQUE: AP portable upright at 1147 COMMENT: Compared to 01/18/2019 the pleural fluid collection and/or pleural thickening in the apex on the right has diminished. The left base is also c learer. The heart size remains at the upper limits of normal. IMPRESSION: Improved right pleural effusion. No new abnormalities. Electronically signed by Obi Wilks 09/22/2019 12:00 PM 09/22/19 1200 Interpreting Physician: Obi Wilks MD Dictated Date/Time: 09/22/19 1159 cc: Deacon Jeong; Drarel Avila MD) XRAY Interpretation: See note - CONSULTS/PCP/HOSPITALIST Notification #1 *Consult/PCP/Hospitalist*: Puja Lane Time Discussed: 12:55 Reason/Comments: Admission Consult Disposition: Will see in ED, Admit Departure - Departure Date of Disposition Decision: 09/22/19 Time of Disposition Decision: 12:11 DIAGNOSIS: Cellulitis of left leg CHF (congestive heart failure) Qualifiers: Heart failure type: unspecified Heart failure chronicity: unspecified Qualified Code(s): I50.9 - Heart failure, unspecified Renal failure Qualifiers: Renal failure chronicity: acute on chronic Acute renal failure type: unspecified Chronic kidney disease stage: unspecified stage Qualified Code(s): N17.9 - Acute kidney failure, unspecified; N18.9 - Chronic kidney disease, unspecified Disposition: ADMITTED INPATIENT 09 Certified Medical Emergency: Emergent Condition: Stable Referrals and Follow-Ups: Darrel Avila MD [Primary Care Provider] - - Critical Care Note This patient required my direct & personal management of CC.: Yes Total Time (mins): 35 Critical Care Statement: This patient required my direct personal management to treat or rule out processes, the absence of which, could potentiallly result in sudden, clinically significant life or limb threatening deterioration. Attestation - Physician/ SHILPA Attestation Patient care was provided by Advanced Practice Provider:: Yes Advanced Practice Provider:: Deacon Jeong Advanced Practice Provider documentation review:: The Mid-level provider documentation, treatment plan and medical decision making was reviewed by the physician who agrees with all treatment and medical decision making by the MLP. The physician spent face to face time with patient:: No Advanced Practice Provider documentation review:: Supervising physician onsite and consulted in the evaluation and care of this patient. The physician did not have a face to face encounter with the patient.
[2019-09-22] MEDS ORDERED: VANCOMYCIN 1 GM/NS 1 GM/250 ML IVPB IV ONE (11:30)
--- NOTE | 2019-09-22 12:02 | Diag Imaging Result Doc PS360 ---
EXAM: CHEST-PORTABLE 09/22/2019 HISTORY: weakness TECHNIQUE: AP portable upright at 1147 COMMENT: Compared to 01/18/2019 the pleural fluid collection and/or pleural thickening in the apex on the right has diminished. The left base is also clearer. The heart size remains at the upper limits of normal. IMPRESSION: Improved right pleural effusion. No new abnormalities. Electronically signed by Obi Wilks 09/22/2019 12:00 PM
--- NOTE | 2019-09-22 12:04 | Diag Imaging Result Doc PS360 ---
EXAM: FOOT COMPLETE LEFT 09/22/2019 HISTORY: infection TECHNIQUE: Left foot three views COMMENT: There is generalized osteopenia. There is extensive arterial calcification. There is soft tissue swelling over the dorsum of the foot. There is no evidence of acute fracture or dislocation periosteal reaction or erosion. IMPRESSION: Osteoporosis and atherosclerosis. The possibility of cellulitis cannot be excluded. Electronically signed by Obi Wilks 09/22/2019 12:01 PM
[2019-09-22 12:08] LABS: BASO# 0.01 X1000 (0.0-0.2); EOS# 0.02 X1000 (0.0-0.7); EOS% 0.1 % (0.0-10.0); HEMATOCRIT 23.8 % (42.0-52.0); HEMOGLOBIN 7.7 g/dL (14.0-18.0); IMM GRAN# 0.11 X1000 (0.0-0.04); IMM GRAN% 0.5 % (0.0-0.5); LYMPH% 4.5 % (20.5-51.1); MCH 27.8 PG (27-31); MCHC 32.4 g/dL (33-37); MCV 85.9 FL (81-99); MONO# 0.99 X1000 (0.11-0.59); MONO% 4.5 % (1.7-9.3); MPV 8.8 FL (7.4-10.4); NEUT# 19.86 X1000 (1.4-6.5); NEUT% 90.4 % (42.2-75.2); PLT 495 X1000 (130-400); RBC 2.77 XMIL (4.7-6.1); RDW 12.6 % (11.5-14.5); WBC 21.99 X1000 (4.8-10.8)
[2019-09-22 12:27] LABS: URINE SOURCE CLEAN CATCH
[2019-09-22 12:28] LABS: ALB/GLOB RATIO 0.6; ALBUMIN 2.3 g/dL (3.5-5.0); CALCIUM 7.9 mg/dL (8.8-10.2); CREATININE 3.4 mg/dL (0.7-1.2); POTASSIUM 4.8 mmol/L (3.5-5.1); TOTAL BILIRUBIN 0.25 mg/dL (0.20-1.00); TOTAL PROTEIN 5.9 g/dL (6.3-8.3)
[2019-09-22 12:32] LABS: BILIRUBIN URINE NEGATIVE (NEGATIVE); BLOOD URINE TRACE (NEGATIVE); COLOR YELLOW; GLUCOSE URINE 300 mg/dL (NEGATIVE); KETONE URINE NEGATIVE (NEGATIVE); LEUKOCYTES URINE NEGATIVE (NEGATIVE); NITRITE URINE NEGATIVE (NEGATIVE); PROTEIN URINE 300 mg/dL (NEGATIVE); SP GRAVITY URINE 1.015; TURBIDITY URINE CLEAR (CLEAR); UROBILINOGEN URINE NORMAL (NORMAL)
[2019-09-22 12:34] LABS: UR EPITHELIAL CELLS <10 /HPF (<10); URINE BACTERIA NEGATIVE /HPF; URINE RBC <10 /HPF (<10); URINE WBC <10 /HPF (<10)
[2019-09-22] MEDS ORDERED: LASIX IV ONE (12:51)
[2019-09-22] MEDS ORDERED: ZOSYN 3.375 GM in NS 50 ML IV ONE (12:51)
[2019-09-22 12:59] LABS: INR 1.2; PROTIME 15.4 Seconds (11.0-16.0)
[2019-09-22 13:00] LABS: PTT 46.4 Seconds (22.3-41.8)
--- NOTE | 2019-09-22 13:03 | EKG Report ---
Test Performed on : 09/22/2019 11:51:23 AM Test Reason : CP Blood Pressure : / mmHG Vent. Rate : 103 BPM Atrial Rate : 103 BPM P-R Int : 162 ms QRS Dur : 092 ms QT Int : 348 ms P-R-T Axes : 054 008 042 degrees QTc Int : 455 ms Sinus tachycardia. Otherwise normal ECG When compared with ECG of 18-JAN-2019 20:19, Vent. rate has increased BY 35 BPM Unconfirmed Result
[2019-09-22] MEDS ORDERED: LANTUS INSULIN SUBQ ONE (14:23)
--- NOTE | 2019-09-22 14:27 | ED EKG INTERP ---
This chart was entered by Alisa Joshi Scribe, acting as scribe for Finesse Crook MD. EKG Interpretation - EKG Time of EKG reading by physician:: 11:51 EKG Read and Signed by:: Finesse Crook EKG Interpretation (*Must complete 3 of following elements*): Abnormal Rate: 103 Rhythm: sinus tachycardia [place]: normal [place] Interval: normal Comments: otherwise normal ECG Attestation - Physician/ SHILPA Attestation Patient care was provided by Advanced Practice Provider:: Yes Advanced Practice Provider:: Deacon Jeong Advanced Practice Provider documentation review:: The Mid-level provider documentation, treatment plan and medical decision making was reviewed by the physician who agrees with all treatment and medical decision making by the MLP. The physician spent face to face time with patient:: No Advanced Practice Provider documentation review:: Supervising physician onsite and consulted in the evaluation and care of this patient. The physician did not have a face to face encounter with the patient. This chart was documented by the indicated scribe, (Alisa Joshi Scribe) and accurately reflects the services I performed and decisions made by Ambreen lopez Kent A., MD, as attested by the provider's signature.
--- NOTE | 2019-09-22 15:04 | HISTORY AND PHYSICAL ---
The patient seen and examined by me [id number]. All the laboratory, vital signs and images were reviewed. The patient presented to the emergency department with a chief complaint of left foot swelling and pain, it looks like this patient has been paraplegic for 7 years now. He has been treated by his primary care doctor for cellulitis. Apparently, he received some IV or IM treatment but also he has been getting some p.o. treatment, and apparently, his foot is getting worse. The who is at the bedside showed me a picture and it looks like his leg is less swollen but the redness is getting worse. Also, he has some necrotic lesions, scattered in different parts of the left lower extremity, including his heel, external malleolus and internal part of the foot as well. We will put this patient on broad-spectrum antibiotics. I will consult Infectious Disease Department to evaluate this patient. He meets criteria for sepsis, but since he has chronic kidney disease and he seems to be overloaded, we are not going to give him fluids, but we will start right away with the antibiotics. [place] [address] and actually is higher compared with the previous visit. His troponin also is a little bit elevated at 0.1, but he is not complaining of chest pain or shortness of breath, I will put him on some Lantus. I will give him 20 units right now, and tomorrow, I will re-evaluate him. It looks like his glucose has been above 300 during this hospitalization and we will continue with sliding scale insulin as well. He already received the 1st treatment with antibiotics and some Lasix in the emergency department. I will order a CT scan of that leg without contrast because of his kidney dysfunction and probably surgery department will be on board but I will make that decision depending on the CT scan and probably that will be done tomorrow morning, and probably I will consult surgery tomorrow morning. We will avoid too much nephrotoxic medications, but since this patient has been on Lasix and torsemide at home I will continue only with Lasix since his legs are really swollen, the left lower extremity is weeping some thick fluid. I will keep the legs elevated. I have discussed his advanced directive with him and the at the bedside for at least 15 minutes and they both have decided to go ahead and put him full code. I agree with the rest of the nurse practitioner's assessment and plan. cc: Lino Perez MD
[2019-09-22] MEDS ORDERED: ZOFRAN IV PRN (15:18)
--- NOTE | 2019-09-22 16:11 | Diag Imaging Result Doc PS360 ---
EXAM: CT EXT LOWER LEFT W/O CON HISTORY: R/O fluid/abscess collection TECHNIQUE: Left lower extremity CT without contrast. Imaging from the knee to the ankle. COMPARISON: None. FINDINGS: Severe atherosclerosis. There is subcutaneous and soft tissue edema throughout. The bones are osteopenic. No well-defined fluid collection in the soft tissues. No air in the soft tissues. IMPRESSION: Subcutaneous and soft tissue edema, but no well-defined fluid collection. This exam was performed using automated exposure control, adjustment of mA or kV according to patient size, and/or use of iterative reconstruction technique. Electronically signed by Chad Diamond 09/22/2019 4:09 PM
[2019-09-22] MEDS ORDERED: LIORESAL PO SCH (17:00)
[2019-09-22] MEDS ORDERED: ELAVIL PO SCH (17:00)
[2019-09-22] MEDS: HUMALOG SUBQ SCH ×2 (17:21→20:43)
[2019-09-22] MEDS ORDERED: VANCOMYCIN IV PER PHARMACY MISC SCH (17:45)
[2019-09-22] MEDS: LIORESAL PO SCH ×2 (18:05→20:31)
--- NOTE | 2019-09-22 19:44 | HISTORY AND PHYSICAL ---
PRIMARY CARE PROVIDER: Dr. Darrel Avila. CHIEF COMPLAINT: Left lower extremity pain. HISTORY OF PRESENT ILLNESS: Mr. Contreras is a 64-year-old male with a past medical history of paraplegia secondary to T8-T9 ruptured lesion; coronary artery disease; systolic heart failure; melanoma of the right axilla, status post excision with lymph node removal; hypertension; diabetes mellitus type 2; degenerative disk disease; hyperlipidemia; chronic pain syndrome. He reported for the past 2 weeks he is having ongoing infection that has been treated by his PCP. He went to the ED at [place], I believe last Saturday. They did offer him admission, however, he refused. He was given IV antibiotics at that time; however, his left lower extremity has continued to worsen. He is more erythematous and edematous with eschar, and the redness has gone up to the inner thigh. He will be admitted on IV antibiotics with an Infectious Disease consult as well as Wound Care. He did have a foot x-ray in the ED that showed osteoporosis and atherosclerosis, and the possibility of cellulitis could not be excluded. We are going to check a CT of the left lower extremity as well as send off wound cultures and initiate him on broad-spectrum antibiotics. He does have chronic kidney disease, which is up from his baseline with an elevated proBNP. He was given a dose of IV Lasix. PAST MEDICAL HISTORY: 1. A T8-T9 rupture causing bilateral lower extremity paraplegia and thoracic cord dissection. The patient is in a wheelchair. He is unable to walk; however, he does have sensation. He reports it is not a normal sensation, however. 2. Systolic congestive heart failure. 3. Coronary artery disease, with [place] in 2000, with 3 cardiac stents. 4. Melanoma to the right axilla, status post excision with lymph node removal. 5. Hypertension. 6. Diabetes mellitus type 2. 7. Degenerative disk disease. 8. Hyperlipidemia. 9. Chronic pain syndrome. PAST SURGICAL HISTORY: 1. T6 through T7 fusion. 2. Angioplasty x3 in 2000. 3. Right axillary melanoma with lymph node removal. SOCIAL HISTORY: He quit smoking in 2007. There is no alcohol or illicit drug use. He lives at home with his and children. FAMILY HISTORY: Mother with diabetes, lung cancer and peptic ulcer disease. Father at the age of 66 of [place]. ALLERGIES: No known drug allergies. HOME MEDICATIONS: 1. Elavil 10 mg p.o. t.i.d. 2. Norvasc 5 mg p.o. daily. 3. Aspirin 81 mg p.o. daily. 4. Lipitor 40 mg p.o. daily. 5. Baclofen 10 mg p.o. t.i.d. 6. Coreg 6.25 mg p.o. b.i.d. 7. Cefdinir 1 capsule p.o. b.i.d. 8. Lasix 40 mg p.o. b.i.d. 9. Folivane-Plus capsule 1 capsule p.o. daily. 10. Levaquin 250 mg p.o. daily. 11. Torsemide 1 tablet p.o. daily. REVIEW OF SYSTEMS: Negative for chest pain, shortness of breath, nausea, vomiting, diarrhea, fever or chills. No hematuria, dysuria. Denies any bright red or dark tarry stools or hematemesis. Positive for left lower extremity pain. PHYSICAL EXAMINATION: VITAL SIGNS: Temperature is 97.5 degrees, heart rate 103, respirations 18, blood pressure 134/59, O2 is 95% on room air. GENERAL: Mr. Contreras is a pleasant 64-year-old male who is sitting up in the bed in no acute distress. HEENT: Atraumatic, normocephalic. PERRL. NECK: Supple. Trachea midline. CARDIOVASCULAR: S1, S2 appreciated. No murmurs, gallops or rubs noted. RESPIRATORY: Lung sounds clear bilaterally. GASTROINTESTINAL: Soft, nontender, nondistended. Positive bowel sounds x4 quadrants. EXTREMITIES: Paraplegia. He reports he is not able to walk but he does have sensation; however, it is a strange sensation. He is able to feel pain. He is able to feel one touch him. He does have 2 to 3+ pitting edema on the left. Unable to assess that pedal pulse. He does have 2 to 3+ pitting edema on the right and 1 to 2+ pitting edema on the left. He is erythematous up to his knee as well as it is coming up into his inner thigh. He does have some eschar on the inner and outer of his ankles. There is a spot that is oozing as well. He does have some eschar on his heel. NEUROLOGIC: No focal deficits noted. DIAGNOSTIC DATA: Foot x-ray: Osteoporosis and atherosclerosis; could not exclude cellulitis. Chest x-ray: Improved right pleural effusion. LABORATORY DATA: White count 21, hemoglobin and hematocrit 7 and 23, platelet count is 495,000. Sodium 132, potassium 4.8, BUN 61, creatinine 3.4, blood glucose was 300, AST 62, alkaline phosphatase 146. Troponin 0.160. ProBNP 12,792. Albumin 2.3. Acetone level is negative. Urinalysis was negative for bacteria, negative for nitrites. ASSESSMENT AND PLAN: 1. Left lower extremity cellulitis with some necrotic lesions. Cultures have been sent. He was placed on broad-spectrum antibiotics. Consulted Infectious Disease. He did meet criteria for sepsis; however, with his chronic kidney disease he is in fluid volume overload so he was not given any fluids, as well as with his elevated proBNP at 12,792. He was given intravenous Lasix in the emergency department, which we will continue b.i.d. We will consult Wound Care. Continue with his antibiotics and Infectious Disease consult. Possibly consult General Surgery, and order a CT scan of the leg without contrast secondary to his kidney dysfunction. 2. Fluid volume overload, with lower extremity edema. We will continue with intravenous Lasix. 3. Zyrwo-wq-ovzujvi kidney disease. We will consult Dr. Polanco to assist in his medical management. 4. Hyperglycemia. We will place him on sliding scale with pattern blood sugars. The patient was taken off oral medications by his primary care provider. 5. Elevated troponins. The patient adamantly denies any chest pain. He does not have any ST elevations in his electrocardiogram. We will continue to trend his troponins. We believe it is secondary to his vlbzf-py-hlcbqed kidney disease. 6. Hyponatremia. 7. Anemia. Hemoglobin and hematocrit are currently 7 and 23. He does not appear to be symptomatic. We believe this is from his fluid volume overload. We will continue to watch his numbers closely. He has been typed and screened. If he needs to be transfused. 8. Coronary artery disease. The patient is not complaining of any chest pain. 9. T8-T9 ruptured lesion with paraplegia. Aware. Further recommendation to follow physician evaluation, laboratory and diagnostic data. Dictated by KRISTAL Pierce for Lino Perez MD cc: MD Jus Singh MD Kenneth E. Mashburn, MD MTDD
[2019-09-22] MEDS: COREG PO SCH (20:31)
[2019-09-22] MEDS: LASIX IV SCH (20:32)
[2019-09-22] MEDS: ZOSYN 2.25 GM in NS 50 ML IV SCH (20:32)
[2019-09-23] MEDS ORDERED: ZYVOX 600 MG/D5W 600 MG/300 ML IVPB IV SCH (02:00)
[2019-09-23] MEDS: LIORESAL PO SCH ×4 (02:11→20:15)
[2019-09-23] MEDS: ZOSYN 2.25 GM in NS 50 ML IV SCH (02:12)
[2019-09-23 04:34] LABS: URINE SOURCE CATH
[2019-09-23 04:46] LABS: BILIRUBIN URINE NEGATIVE (NEGATIVE); BLOOD URINE TRACE (NEGATIVE); COLOR YELLOW; GLUCOSE URINE 70 mg/dL (NEGATIVE); KETONE URINE NEGATIVE (NEGATIVE); LEUKOCYTES URINE NEGATIVE (NEGATIVE); NITRITE URINE NEGATIVE (NEGATIVE); PROTEIN URINE 100 mg/dL (NEGATIVE); SP GRAVITY URINE 1.012; TURBIDITY URINE CLEAR (CLEAR); UR EPITHELIAL CELLS <10 /HPF (<10); URINE BACTERIA NEGATIVE /HPF; URINE WBC <10 /HPF (<10); UROBILINOGEN URINE NORMAL (NORMAL)
[2019-09-23 05:20] LABS: BASO# 0.08 X1000 (0.0-0.2); BASO% 0.4 % (0.0-0.8); EOS# 0.07 X1000 (0.0-0.7); EOS% 0.4 % (0.0-10.0); HEMATOCRIT 23.1 % (42.0-52.0); HEMOGLOBIN 7.4 g/dL (14.0-18.0); IMM GRAN# 0.08 X1000 (0.0-0.04); IMM GRAN% 0.4 % (0.0-0.5); LYMPH# 1.01 X1000 (1.2-3.4); LYMPH% 5.6 % (20.5-51.1); MCH 27.6 PG (27-31); MCV 86.2 FL (81-99); MONO% 5.5 % (1.7-9.3); MPV 8.8 FL (7.4-10.4); NEUT# 15.92 X1000 (1.4-6.5); NEUT% 87.7 % (42.2-75.2); PLT 475 X1000 (130-400); RBC 2.68 XMIL (4.7-6.1); RDW 12.7 % (11.5-14.5); WBC 18.16 X1000 (4.8-10.8)
[2019-09-23 05:27] LABS: HYPOCHROM 1+; LYMPHS 4 % (21-51); MONO 6 % (1-9); SEGS 90 % (42-75)
[2019-09-23 05:46] LABS: ALB/GLOB RATIO 0.4; ALBUMIN 1.8 g/dL (3.5-5.0); CALCIUM 8.1 mg/dL (8.8-10.2); CREATININE 3.2 mg/dL (0.7-1.2); MAGNESIUM 2.2 mg/dL (1.5-2.7); TOTAL BILIRUBIN 0.24 mg/dL (0.20-1.00); TOTAL PROTEIN 6.4 g/dL (6.3-8.3)
[2019-09-23] MEDS ORDERED: MAXIPIME 2 GM in NS 100 ML IV SCH (06:45)
[2019-09-23] MEDS: HUMALOG SUBQ SCH ×4 (06:53→20:15)
[2019-09-23] MEDS: MAXIPIME 1 GM in NS 50 ML IV SCH ×2 (07:02→18:10)
--- NOTE | 2019-09-23 07:09 | Diag Imaging Result Doc PS360 ---
CHEST-PORTABLE - 09/23/2019 INDICATION: follow up COMPARISON: 09/22/2019 FINDINGS: The lungs are normally expanded and clear. Heart size and mediastinal contours are normal. No pneumothorax or pleural effusion. IMPRESSION: Negative exam. Electronically signed by Mann Root 09/23/2019 7:07 AM
[2019-09-23] MEDS: LASIX IV SCH ×2 (08:12→20:15)
[2019-09-23] MEDS: NORVASC PO SCH (08:12)
[2019-09-23] MEDS: COREG PO SCH ×2 (08:12→20:15)
[2019-09-23] MEDS: ZYVOX PO SCH ×2 (08:12→20:15)
--- NOTE | 2019-09-23 09:26 | PROGRESS NOTE ---
DATE: 09/23/2019 SUBJECTIVE: This patient states that he is feeling better. He is basically paraplegic and the sensation is decreased, so he does not know exactly if this is painful or not. Compared with yesterday the leg looks about the same, maybe a little bit better. OBJECTIVE: Vital Signs: Temperature 98.3 degrees, pulse 108, respiratory rate 19, blood pressure 153/63, oxygen saturation 93 on room air. HEENT: Head normocephalic, no trauma. PERRLA. Neck: Supple. No JVD. No masses. Central trachea. Chest: Clear to auscultation. No wheezing. No rales. Abdomen: Soft, nontender, nondistended. No hepatosplenomegaly. Extremities: Limited sensation. He is able to feel some pain, but not too much. He has a left 2+ to 3+ pitting edema. I am not able to feel the pulse. He has erythema and this erythema is coming up into his inner thigh. He has some scar tissue and necrotic tissue superficially. He has some spots that are oozing some fluid as well. He does have some scar lesion also on his heel. Neurological examination: This patient is paraplegic. LABORATORY: WBC 18.1, hemoglobin 7.4, hematocrit 23.1, platelets 475. Sodium 136, potassium 4, chloride 99, bicarbonate 26. BUN 59, creatinine 3.2, glucose 157, calcium 8.1. AST 59, ALT 38, alkaline phosphatase 140, albumin 1.8. ASSESSMENT AND PLAN: 1. Left lower extremity cellulitis with some necrotic lesions. Negative cultures so far. We will continue with antibiotics per Infectious Disease Department. CT of the lower extremity showed subcutaneous and soft tissue edema, but no well-defined fluid collection or gas. He seems to be feeling a bit better compared with yesterday. We will continue with same management. 2. Fluid overload with lower extremity edema. We will continue with intravenous Lasix. Nephrology Department on board. 3. Acute on chronic kidney disease. We will continue with the same management. Nephrology Department evaluated this patient. 4. Hyperglycemia. Continue with sliding scale insulin and pattern blood sugar. 5. Elevated troponin with no chest pain. EKG showed sinus tachycardia. Troponins basically were flat times 3. They are not increasing, and he is not complaining of chest pain or shortness of breath. I do not think he has an acute coronary syndrome. Probably this increase of creatinine is due to his kidney dysfunction. 6. Hyponatremia, resolved. 7. Anemia. We will continue to monitor. He does not appear to be symptomatic. 8. History of coronary artery disease. He is not complaining of chest pain. 9. T8/T9 rupture lesion with paraplegia, aware. cc: Lino Perez MD
--- NOTE | 2019-09-23 10:31 | INFECTIOUS DISEASE CONSULT REP ---
DATE: 09/23/2019 CONCLUSION: The patient has cellulitis of the left leg. He also unfortunately has what appears to be end-stage renal disease. RECOMMENDATIONS: I have discontinued vancomycin and Zosyn and have placed the patient instead on Zyvox and cefepime. The dose of cefepime has been altered because of the patient's end-stage renal disease. Also, I put that the patient should not get Elavil while the patient is on Zyvox. Also, I have ordered to elevate the foot of the patient's bed with the manual Gatch and keep it that way continuously. I have told the patient to elevate his leg as much as possible. Some of the side effects of the antibiotics, including rash, diarrhea and hematotoxicity have been explained to the patient who agrees with treatment. DISCUSSION: The patient tells me approximately 2 weeks ago his leg became erythematous and swollen. He does not remember injuring it. He has not had fever or shaking chills. The patient's data so far [place] [address], hemoglobin 7.4, and platelet count 475,000. Creatinine is 3.2 GFR is 20. Alkaline phosphatase is 140. Cultures from the patient's leg are pending. Chest x-ray shows no pneumonia. CT scan of the leg shows subcutaneous and soft tissue edema but no fluid collection. PAST MEDICAL HISTORY/REVIEW OF SYSTEMS: Eyes and ears: He can hear and see okay. Neck: No stiffness. Respiratory: No cough or shortness of breath. Cardiac: No chest pain or palpitations. GI: No nausea, vomiting, or diarrhea. : No dysuria or flank pain. Neurologic: The patient has bilateral leg paresis. He told me it occurred that when he ruptured his disk and he had to have surgery on the disk. Integument: No rash PREVIOUS HOSPITALIZATIONS AND OPERATIONS: He has had a myocardial infarction, placement of coronary artery stents, removal of a melanoma. It was 1st on his back and then it came back on his axillary area and both times the he had surgical removal of the melanoma. The patient, as mentioned above, had operation on his spine because of a ruptured disk. Unfortunately, the patient has developed bilateral leg paresis. MEDICAL DISEASES: Positive for diabetes mellitus, hypertension, myocardial infarction, melanoma and bilateral leg paresis. The patient also has hyperlipidemia. INFECTIOUS DISEASE HISTORY: Positive for UTI, negative for pneumonia. FAMILY HISTORY: Positive for diabetes mellitus, hypertension, myocardial infarction, and cancer. [place]IAL HISTORY[place] . He has a dog as a pet. He is disabled. He stopped smoking cigarettes in 2010. He does not drink alcoholic beverages or abuse drugs. ALLERGIES: His chart lists no known drug allergies his. MEDICATIONS: Taken at home: Elavil, Norvasc, atorvastatin, baclofen, carvedilol, Omnicef, furosemide, Levaquin and torsemide. PHYSICAL EXAMINATION: Vital Signs: Temperature is 100 degrees, pulse 107 respirations 23, blood pressure is 143/58. The patient is 5 feet 9 inches tall, weighs 173 pounds. General: This is a ill-appearing elderly male. He is in no acute distress. Head/eyes/ears/nose/throat: He can hear my spoken words and see near objects. There is no there is no white coating on his tongue. Neck: The patient does not then seem to have any pain when he moves his neck. Lungs: Clear to auscultation. Cardiovascular: Regular heart rate. Abdomen: Soft and nontender. Extremities: The patient's left leg is erythematous on the lower part of the leg. There is also an area where there is a small amount of purulent drainage. He can move his arms quite well, but he has paresis of both legs. INTEGUMENT: There is no rash. Thank you for the consult. cc: Sebastián Aldridge MD
--- NOTE | 2019-09-23 15:34 | PROVIDER PROGRESS NOTE ---
Progress Note Chief complaint: My leg is swollen. HPI: Mr. Contreras is a 64-year-old white male with a past medical history of chronic kidney disease stage 4, hypertension, Hyperlipidemia, diabetes Mellitus type 2, and paraplegia from t8-9 disc rupture. He has noticed edema to bilateral lower extremities for the past 2 weeks with erythema and weeping to the left. He came in to [facility] ED and was given IV antibiotics but refused to be admitted. After a week, he presented to Dr. Avila, his primary, who was having him come in daily for IM antibiotics. He was supposed to return yesterday but his brought him to the ED instead. He admits to being followed for kidney disease stage 4 with us this year but stopped coming to his appointments because we mentioned getting a plan in place for dialysis. In our records his baseline Creatinine was around 2.7. He presented to the ED yesterday with a Creatinine of 3.2. Past medical history: chronic kidney disease stage 4, coronary artery disease with 3 stents, systolic congestive heart failure, melanoma on back and 6 years later in lymph nodes with chemo and radiation, t8-t9 disc rupture compressing spinal cord causing BLE paraplegia, hypertension, diabetes Mellitus type 2, Hyperlipidemia. Past surgical history: melanoma removal, angioplasty x3 Social history: Lives at home with , denies tobacco, alcohol, and illicit drugs. Previous smoker. Family history: Mother had heart disease, cancer, and diabetes. Father of [place]. Allergies: no known. Home medications: amitriptyline, amlodipine, aspirin, Lipitor, baclofen, carvedilol, cefdinir, furosemide, folivane plus, Levaquin, torsemide. Review of systems: neurological: denies altered mental status or confusion. Eyes: denies blurriness, dryness, or change in visual acuity. ENT: denies tinnitus or change in hearing. Integumentary: admits to color change in left extremity, denies rash or itching. Respiratory: denies shortness of breath and orthopnea. Denies productive cough. Cardiovascular: denies palpitations or chest pain. G.I.: denies constipation or nausea and vomiting. : no change in urine production. Endocrine: denies excessive thirst or hunger. Musculoskeletal: admits to increased weakness bilaterally with left extremity pain. Labs: WBC 18.16, hemoglobin 7.4, hematocrit 23.1, platelet count 475, sodium 136, potassium 4.0, chloride 99, carbon dioxide 26, anion gap 11, BUN 59, creatinine 3.2, calcium 8.1, magnesium 2.2, urinalysis: 100 protein, 70 glucose, trace blood. Intake 50, output 1350. Imaging: chest X-ray impression negative exam, left foot x-ray impression osteoporosis and atherosclerosis. The possibility of cellulitis cannot be excluded. CT lower extremity without contrast impression subcutaneous and soft tissue edema, but no well-defined fluid collection. Physical exam: temp 98.3, pulse 108, respirations 19, blood pressure 153/63, 02 sat 93% on room air. General: Elderly white male lying in bed in no acute distress. HEENT: normocephalic, atraumatic, pupils equal and reactive, mucous membranes moist, trachea midline Skin: warm and dry, multiple bruises in different healing stages Neck: supple, 6 cm JVD. Cardiovascular: S1S2, with a soft systolic decrescendo murmur heard best at left sternal border. Respiratory: clear Abdominal: slightly firm, non distended, non tender, bowel sounds active : non inspected Extremities: left lower extremity erythema with 2 + pitting edema and purple discoloration in areas, great toe pale and skin peeling. Serous drainage at ankle Neurological: alert and oriented to person, place, and time. Assessment and plan: chronic kidney disease stage 4. He is at his baseline, no further testing is required. We will continue to monitor him. Blood pressure. stable. Anemia. Below target. Will transfuse if needed. Acid base balance and electrolytes. Stable. Nutrition. Hypoalbuminemia related to inflammation and kidney disease. Will monitor. Fluid volume. Above target, agree with lasix. Medications reviewed. No change.
[2019-09-24] MEDS: LIORESAL PO SCH ×3 (02:15→14:11)
--- NOTE | 2019-09-24 03:26 | GENERAL SURGERY CONSULTATION ---
DATE: 09/23/2019 REASON FOR CONSULTATION: Left lower leg ischemia and infection. CHIEF COMPLAINT: Redness and swelling in his left leg. HISTORY OF PRESENT ILLNESS: A 64-year-old gentleman who has paraplegia related to a spinal cord injury from what sounds like complication of a ruptured disk. He also has heart failure. He has coronary artery disease with an [place] and 3 cardiac stents. He has chronic kidney disease, hypertension, diabetes, degenerative disk disease, hyperlipidemia, chronic pain. He also has a history of melanoma metastatic to the right axilla treated with chemotherapy and radiation at [facility]. He noted changes in his foot. Initially, with skin changes starting a couple weeks ago, and he developed increasing edema, cellulitis with some focal eschar type changes. He was admitted for management of this. SURGICAL HISTORY: He has had a T6 through T7 fusion. He has had coronary angioplasty x3 in 2000, and he has also had operations for melanoma with some degree of lymphadenectomy. SOCIAL HISTORY: He quit smoking in 2007. No current alcohol or drugs. He lives with his and children. He is relegated to wheelchair and he is nonambulatory. FAMILY HISTORY: Lung cancer in his Mother. Coronary artery disease. MEDICATIONS: He takes numerous medications for heart failure, hypertension. He takes an aspirin. REVIEW OF SYSTEMS: Ten-point review of systems negative, other than what is mentioned HPI. PHYSICAL EXAMINATION: Vital signs: On exam, he is a febrile with a T-max of a 100 degrees, low- grade tachycardia in the 100s, blood pressure 143/58, oxygen saturation low to mid 90s on room air. General: He is alert, chronically ill-appearing but in no acute distress. HEENT: No scleral icterus. No cervical mass. Cardiovascular: Low-grade tachycardia. Lungs: No increased work of breathing. Abdomen: Soft, nontender. Integument: Warm and dry. Psychiatric: Appropriate affect. Neurologic: He has a dense bilateral lower extremity paraplegia but sensation seems to be intact. Musculoskeletal: He has some ulcerations and eschar changes to his medial foot. He has cellulitis and edema extending up to the mid calf, but no anat purulence noted on exam, possible that there was some purulence in the past draining from the medial plantar ulcer. There is no crepitus and there is no evidence of necrosis more proximally. His foot does seem warm due to edema. Pedal pulse not easily palpable. The right-sided pedal pulses are faint. Lymphatic: I do not feel any cervical adenopathy. LABORATORY DATA: White count is 18, it was 21 on admission, hematocrit 23, platelets 475,000. Creatinine is 3.2. INR is 1.20. Alkaline phosphatase is 140s, bilirubin is normal. Troponin's are mildly elevated. I have reviewed imaging, including plain films of the foot and lower extremity CT scan, shows no gas containing collections, but does show soft tissue edema. ASSESSMENT AND PLAN: A 64-year-old gentleman with infection of his left foot. He is paraplegic and I suspect he has underlying vascular disease. I think he will have a low threshold for amputation of his leg given his immobility chronically and his chronic kidney disease, which limits our ability to perform any contrast evaluation. We will obtain noninvasive studies to help guide amputation level, although based off the infection, I think this will be an above-knee amputation. I discussed this with the patient. We will observe him over next 24 hours. If not improvement, we will plan for amputation in the near future. cc: Ernie Howell MD
[2019-09-24 05:19] LABS: BASO# 0.03 X1000 (0.0-0.2); BASO% 0.2 % (0.0-0.8); EOS# 0.14 X1000 (0.0-0.7); EOS% 0.7 % (0.0-10.0); HEMATOCRIT 23.2 % (42.0-52.0); HEMOGLOBIN 7.2 g/dL (14.0-18.0); IMM GRAN% 0.5 % (0.0-0.5); LYMPH% 6.4 % (20.5-51.1); MCH 26.9 PG (27-31); MCV 86.6 FL (81-99); MONO# 1.04 X1000 (0.11-0.59); MONO% 5.5 % (1.7-9.3); MPV 8.5 FL (7.4-10.4); NEUT# 16.36 X1000 (1.4-6.5); NEUT% 86.7 % (42.2-75.2); PLT 485 X1000 (130-400); RBC 2.68 XMIL (4.7-6.1); RDW 12.7 % (11.5-14.5); WBC 18.87 X1000 (4.8-10.8)
[2019-09-24 05:36] LABS: ALB/GLOB RATIO 0.5; ALBUMIN 2.1 g/dL (3.5-5.0); CALCIUM 8.2 mg/dL (8.8-10.2); CREATININE 3.1 mg/dL (0.7-1.2); MAGNESIUM 2.1 mg/dL (1.5-2.7); PHOSPHORUS 4.3 mg/dL (2.7-4.5); POTASSIUM 4.3 mmol/L (3.5-5.1); TOTAL BILIRUBIN 0.27 mg/dL (0.20-1.00); TOTAL PROTEIN 6.3 g/dL (6.3-8.3)
[2019-09-24] MEDS: MAXIPIME 1 GM in NS 50 ML IV SCH (06:02)
[2019-09-24] MEDS: HUMALOG SUBQ SCH ×3 (06:43→15:54)
[2019-09-24] MEDS: LIPITOR PO SCH (08:51)
[2019-09-24] MEDS: COREG PO SCH ×2 (08:52→20:56)
[2019-09-24] MEDS: NORVASC PO SCH (08:52)
[2019-09-24] MEDS: ZYVOX PO SCH (08:52)
[2019-09-24] MEDS: LASIX IV SCH ×2 (08:54→21:14)
[2019-09-24] MEDS ORDERED: MAXIPIME ONE (09:29)
[2019-09-24] MEDS: NS 500 ML IV SCH (11:05)
--- NOTE | 2019-09-24 11:11 | PROGRESS NOTE ---
DATE: 09/24/2019 SUBJECTIVE: No big changes compared with yesterday. I do believe the redness is a little bit better today. Surgery Department evaluated this patient. They will evaluate the possibility of amputation. In the meantime, we will continue with antibiotics and treatment. OBJECTIVE: Vital Signs: Temperature 97.4 degrees, pulse 101, respiratory rate 16, blood pressure 147/64, oxygen saturation 94% on room air. HEENT: Head normocephalic. No trauma. PERRLA. Neck: Supple. No JVD. No masses. Central trachea. Chest: Clear to auscultation. No wheezing. No rales. Abdomen: Soft, nontender, nondistended. No hepatosplenomegaly. Extremities: He has limited sensation. He is able to feel some pain, but not too much. There is 2+ to 3+ pitting edema. I am not able to feel the pulse from his knee down. He has an erythema, and this erythema is coming well up to the inner tie. He has some scar tissue and necrotic tissue superficially, and some spots are oozing some fluid as well. Neurological: The patient is paraplegic, but he is alert and oriented x3. No focal deficits. LABORATORY DATA: WBC 18.8, hemoglobin 7.2, hematocrit 23.2, platelets 485,000. Sodium 139, potassium 4.3, chloride 100, bicarbonate 27, BUN 58, creatinine 3.1, glucose 133, calcium 8.2. AST 44, ALT 34, alkaline phosphatase 143, albumin 2.1. ASSESSMENT AND PLAN: 1. Left lower extremity cellulitis with some necrotic lesions. Gram-positive cocci is growing from his left foot culture. He is already on broad-spectrum antibiotics. We will continue with the same management. Infectious Disease Department on board as well as Surgery Department. 2. Fluid overload with lower extremity edema. Will continue with intravenous Lasix. Kidney function seems to be stable. So far, we have removed 2.5 liters, and he is tolerating by mouth. 3. Acute on chronic kidney disease. Will continue with the same management. Nephrology Department following this patient. 4. Hyperglycemia, type 2 diabetes. Blood sugar seems to be better controlled. Will continue to monitor. 5. Elevated troponins. This patient denies chest pain or shortness of breath. 6. Anemia. Will monitor. He does not seem to be symptomatic. Hemoglobin is 7.2. We will transfuse if the hemoglobin drops more than that, at least 7 or less. 7. History of coronary artery disease. He is not complaining of chest pain. 8. T8/T9 rupture lesion with paraplegia. Aware. cc: Lino Perez MD
--- NOTE | 2019-09-24 12:31 | INFECTIOUS DISEASE PROGRESS NO ---
DATE: 09/24/2019 PRESENT ILLNESS: The patient has cellulitis of the left leg. MEDICATIONS: The patient currently is receiving a combination of Zyvox and cefepime. The dose of cefepime has been modified because of the patient's end-stage renal disease. PHYSICAL EXAMINATION: Vital Signs: Temperature 97.9 degrees, pulse 102, respirations 17, and blood pressure 159/63. General: This is an ill-appearing elderly male. He is in no acute distress. Head/eyes/ears/nose/throat: He can hear my spoken words and see near objects. I did notice any white patches in his mouth. Neck: No meningismus. Lungs: Clear to auscultation. Cardiovascular: Regular heart rate. Abdomen: Soft and nontender. Extremities: The patient's left leg is less erythematous and less swollen than it was yesterday. There is a very minimal area of purulent drainage. Integument: No rash. LABORATORY AND X-RAY: There is no new radiographic study[place] [address], hemoglobin 7.2, and platelet count 485,000. Creatinine is 3.1. GFR is 20. Alkaline phosphatase is 143. Cultures from the blood and left leg are pending. ASSESSMENT AND PLAN: Patient has left leg cellulitis. My plan is to continue with the current antibiotics, and also elevation of the patient's leg. COMORBIDITIES: The patient has diabetes mellitus, bilateral leg paresis, and end-stage renal disease. cc: Sebastián Aldridge MD
--- NOTE | 2019-09-24 15:02 | PROVIDER PROGRESS NOTE ---
Progress Note Subjective: voices sleeping well, no uremic complaints. Objective: temp 97.9, pulse 102, respirations 17, blood pressure 159/63, 02 sat 95% on room air. General: Elderly white male lying in bed in no acute distress. HEENT: normocephalic, atraumatic, pupils equal and reactive, mucous membranes moist, trachea midline Skin: warm and dry, multiple bruises in different healing stages Neck: supple, 6 cm JVD. Cardiovascular: S1S2, with a soft systolic decrescendo murmur heard best at left sternal border. Respiratory: clear Abdominal: slightly firm, non distended, non tender, bowel sounds active : non inspected Extremities: left lower extremity erythema with 2 + pitting edema and purple discoloration in areas, great toe pale and skin peeling. Serous drainage at ankle Neurological: alert and oriented to person, place, and time. Labs: WBC 18.87, hemoglobin 7.2, hematocrit 23.2, platelet count 45, sodium 139, potassium 4.3, chloride 100, carbon dioxide 27, BUN 58, creatinine 3.1. Intake 648, output 1925 Impression: chronic kidney disease stage 4. He is at his baseline, We will continue to monitor him. Blood pressure. stable. Anemia. Below target. Will transfuse if below 7.0. Acid base balance and electrolytes. Stable. Nutrition. Hypoalbuminemia related to inflammation and kidney disease. Will monitor. Fluid volume. Above target, continues on lasix. Medications reviewed. No change.
[2019-09-24] MEDS ORDERED: VERSED ONE (16:47)
[2019-09-24] MEDS ORDERED: XYLOCAINE-MPF 2% ONE (17:08)
[2019-09-24] MEDS ORDERED: AMIDATE ONE (17:08)
[2019-09-24] MEDS ORDERED: ROBINUL ONE (17:12)
--- NOTE | 2019-09-24 17:41 | GENERAL SURGERY PROGRESS NOTE ---
DATE: 09/24/2019 SUBJECTIVE: Clinically, he is about the same. Cellulitis may have receded some, but he remains with low-grade tachycardia and low-grade fevers, really nothing above 100. White count remains elevated at 18, hematocrit is 23. Creatinine is 3.1. PHYSICAL EXAMINATION: He is alert, in no acute distress.Cardiovascular: Low-grade sinus tachycardia. Pulmonary: No increased work of breathing. His left foot shows more demarcation and ischemic changes with cellulitis to the level the mid to upper calf, but the thigh appears normal. DIAGNOSTIC DATA: I reviewed his noninvasive vascular studies that show YANDY of 1.6 suggesting calcific disease with flat line waveforms of the left toe. ASSESSMENT AND PLAN: A 64-year-old gentleman with multiple medical issues including paraplegia, end-stage renal disease, diabetes, hypertension, history of tobacco abuse, who presents with severe infection of left foot. It has showed no improvement really over the last 24 hours. Given his suggestion of peripheral vascular disease and his chronic kidney disease, I have recommended above-knee amputation as I feel that any further contrast-based evaluation would worsen his renal function, potentially progressing him toward dialysis, and ultimately not improve the fate of his limb. He is wheelchair bound as it is. We discussed the risk of bleeding, infection, perioperative complications including worsening infection, delayed wound healing, and even cardiopulmonary events. We did discuss the possibility of progressing towards dialysis with the surgery as well. He understands all of this and consents. We have made him n.p.o. and have him on the schedule this afternoon. cc: Ernie Howell MD
[2019-09-25] MEDS: HUMALOG SUBQ SCH ×5 (01:12→20:05)
[2019-09-25] MEDS: COREG PO SCH ×3 (01:14→20:05)
[2019-09-25] MEDS: LIORESAL PO SCH ×5 (01:15→20:04)
[2019-09-25] MEDS: ZYVOX PO SCH ×3 (01:16→20:04)
--- NOTE | 2019-09-25 01:24 | OPERATIVE NOTE ---
PROCEDURE DATE: 09/24/2019 PREOPERATIVE DIAGNOSES: 1. Infected necrosis of the left leg. 2. Paraplegia. POSTOPERATIVE DIAGNOSES: 1. Infected necrosis of the left leg. 2. Paraplegia. PROCEDURE PERFORMED: Left above-knee amputation. ESTIMATED BLOOD LOSS: 250 mL. ANESTHESIA: General. INDICATIONS: This is a 64-year-old gentleman with multiple medical problems, chronic kidney disease, diabetes, hypertension, peripheral vascular disease and paraplegia related to complication from a ruptured disk. He presented with progressive discoloration and ischemia of his left foot with cellulitis, leukocytosis. He failed 24 hours of IV antibiotics. His noninvasive study showed evidence of significant calcific disease. OPERATIVE FINDINGS: Well perfused at the amputation level. OPERATIVE NOTE: Risks, benefits and alternatives were discussed with patient, he consented to the procedure. Preoperatively, the proper surgical site was confirmed and marked. He was taken to the operating room, placed in supine position. General anesthesia was induced without complication. All bony prominences were padded. His left leg was prepped with chlorhexidine, excluding the foot and distal leg, and draped in usual fashion. After time-out, a fishmouth type incision was made 1 handsbreadth above the distal aspect of the femur. Using a 10 blade scalpel, I carried this down through the subcutaneous tissue, with Bovie cautery was carried down to the anterior surface of the femur. It was encircled, the SFA pedicle was identified and ligated doubly. We then, after encircling the femur, used a periosteal elevator to elevate this and completed our bone amputation with a Gigli saw. The posterior amputation flap was completed with an amputation knife. Then, all bleeding vessels were cauterized and/or ligated. Hemostasis was noted. We reapproximated the fascia over the distal aspect of the femur in a deep layer, and then the more superficial fascia was reapproximated with interrupted 0 Vicryl suture. Skin was closed surgical clips. A Xeroform gauze, Kerlix, and an Sarmad wrap was applied. He tolerated it well, transferred to recovery. I have spoken with the family. cc: Ernie Howell MD
[2019-09-25] MEDS: MAXIPIME 1 GM in NS 50 ML IV SCH ×3 (04:10→18:31)
[2019-09-25 05:16] LABS: BASO# 0.03 X1000 (0.0-0.2); BASO% 0.2 % (0.0-0.8); EOS# 0.13 X1000 (0.0-0.7); HEMATOCRIT 29.9 % (42.0-52.0); HEMOGLOBIN 9.7 g/dL (14.0-18.0); IMM GRAN# 0.06 X1000 (0.0-0.04); IMM GRAN% 0.4 % (0.0-0.5); LYMPH# 0.86 X1000 (1.2-3.4); LYMPH% 6.3 % (20.5-51.1); MCH 28.2 PG (27-31); MCHC 32.4 g/dL (33-37); MCV 86.9 FL (81-99); MONO# 0.66 X1000 (0.11-0.59); MONO% 4.8 % (1.7-9.3); MPV 8.6 FL (7.4-10.4); NEUT# 11.87 X1000 (1.4-6.5); NEUT% 87.3 % (42.2-75.2); PLT 379 X1000 (130-400); RBC 3.44 XMIL (4.7-6.1); RDW 13.2 % (11.5-14.5); WBC 13.61 X1000 (4.8-10.8)
[2019-09-25 05:52] LABS: CALCIUM 7.8 mg/dL (8.8-10.2); CREATININE 2.8 mg/dL (0.7-1.2); POTASSIUM 4.2 mmol/L (3.5-5.1)
[2019-09-25] MEDS: LASIX IV SCH ×2 (09:31→20:06)
[2019-09-25] MEDS: LIPITOR PO SCH (09:32)
[2019-09-25] MEDS: NORVASC PO SCH (09:32)
--- NOTE | 2019-09-25 12:01 | VASCULAR LAB ---
PROCEDURE NAME: Arterial Bilateral Legs - 09/24/2019 REQUESTING PHYSICIAN: Dr. Steffen Howell. LEAD LOADER: Rosado. INDICATION: Ischemic left leg. FINDINGS: Segmental pressures are as follows: Right brachial not measured, left 156. Right proximal thigh 250, left 250. Right distal thigh 250, left 250. Right popliteal 250, left 250. Right dorsalis pedis 250, left 250. Right posterior tibial 250, left 250. Right great toe 54, left not measured. Right YANDY 1.60, left 1.60. Right TBI 0.35, left not measured. Waveforms appear almost monophasic throughout the entirety of the course of the leg. There is at least a faint hint of a waveform noted to the right great toe. There is no waveform noted at the left toe. The waveforms are blunted on both sides at the level of the ankle. INTERPRETATION: Likely significant calcified disease with peripheral vascular disease. The patient's waveforms suggest potential difficulty of healing [id number] amputation and higher likelihood of healing above the knee. cc: MD Ernie Alexander MD
--- NOTE | 2019-09-25 12:55 | INFECTIOUS DISEASE PROGRESS NO ---
DATE: 09/25/2019 SUBJECTIVE: The patient yesterday underwent an [id number] amputation performed by Dr. Steffen Howell. I have ordered the patient's antibiotics, namely Zyvox and cefepime, to stop on September 27 at 11 a.m. I am signing off of the patient's case. cc: Sebastián Aldridge MD
[2019-09-25] MEDS: NS 500 ML IV SCH (14:00)
--- NOTE | 2019-09-25 15:32 | PROGRESS NOTE ---
DATE: 09/25/2019 SUBJECTIVE: This patient is status post left above the knee amputation due to an infected necrosis of the left leg postoperative day #1. He seems to be doing well. He is alert, and he is oriented x3, but it looks like he has been confused on and off. For now, we will continue with the same management. He will continue treatment until this Saturday per Infectious Disease Department. Surgery Department following this patient closely. I have requested PT and OT evaluation. We will discuss with the patient the possibility of going to rehab center which I believe for now he has been refusing. OBJECTIVE: Vital Signs: Temperature 98.1 degrees, pulse 90 respiratory rate 16, blood pressure 140/59, oxygen saturation 99 on 1.5 L nasal cannula. HEENT: Head normocephalic. No trauma. PERRLA. Neck: Supple. No JVD. No masses. Central trachea. Chest: Clear to auscultation. No wheezing. No rales. Abdomen: Soft, nontender, nondistended. No hepatosplenomegaly. Extremities: Left AKA with dressing with no signs of bleeding. He is paraplegic. He states that he has been having some spasm. Neurological: The patient is paraplegic, but he is alert. He is oriented, but he has been having probably some confusion. He does not want to eat, but I am not quite sure why. LABORATORY: WBC 13.6, hemoglobin 9.7, hematocrit 29.9, and platelets 379,000. Sodium 137, potassium 4.2, chloride 101, bicarbonate 25, BUN 57, creatinine 2.8, glucose 261, and calcium 7.8. ASSESSMENT AND PLAN: 1. Left lower extremity cellulitis with necrotic areas, status post AKA, postoperative day #1. 2. The patient seems to be doing well. He tolerated well the procedure. He has been having some spasm, and he states that when that happened he feels pain. He is paraplegic, but he still feels some pain. I have requested physical therapy and occupational therapy evaluation. Surgery Department on board as well as Infectious Disease Department. We will treat this patient with antibiotics until this saturday. 3. Fluid overload with lower extremity edema. We will continue with the same management. He has been getting Lasix twice a day. His BUN and creatinine are decreasing slowly. So far, he has a negative balance of 2.2 L. 4. Acute on chronic kidney disease as above. Nephrology Department on board. Continue with diuresis and diuretics. 5. Type 2 diabetes. Blood sugar increased compared with yesterday, probably is secondary to the whole surgical process. For now, I will continue with same management, sliding scale insulin as well. 6. Elevated troponins. He denies chest pain or shortness of breath. I do not think he has an acute coronary syndrome. 7. Anemia, we will monitor. He received already 3 units of PRBC's. Hemoglobin is 9.7. 8. History of coronary artery disease with no chest pain. 9. T8 and T9 ruptured lesion with paraplegia, aware. cc: Lino Perez MD
--- NOTE | 2019-09-25 21:02 | NEPHROLOGY PROGRESS NOTE ---
DATE: 09/25/2019 SUBJECTIVE: He still has some pain at his surgical site. Eating some, but low volume. No shortness of breath. OBJECTIVE: Vital Signs: Blood pressure 144/65, heart rate 91, respiration 18, afebrile. General: No acute distress. Skin: Warm and dry. Conjunctivae are pink. Neck: Neck veins are not distended. Heart: Regular. Lungs: Equal. No crackles. Abdomen: Benign. Extremities: No edema, clubbing, or cyanosis. IMPRESSION: 1. Chronic kidney disease stage 4. Renal function is at baseline. 2. Euvolemic. Electrolytes/acid base in target. 3. Anemia, improved following transfusion. Observe. cc: Jus Polanco MD
--- NOTE | 2019-09-25 21:18 | GENERAL SURGERY PROGRESS NOTE ---
DATE: 09/25/2019 SUBJECTIVE: Doing well. Not having really any pain. No fevers documented. OBJECTIVE: Pulse has been in the 90s, blood pressure 140/59, oxygen saturation 99%. General: He is alert. Extremities: Left AKA dressing is clean. No drainage. LABORATORY DATA: I reviewed his labs. His white count is down to 13, hematocrit is 29, creatinine is 2.8. ASSESSMENT AND PLAN: A 64-year-old gentleman status post left above-knee amputation for severe left lower leg infection with peripheral vascular disease. Doing well. We will keep his dressing. Dr. Oswald is following the patient for the weekend. We will continue to follow along for antibiotics with Dr. Aldridge, although I do feel that from a left lower extremity standpoint we have control of the sepsis. Blood cultures show no growth to date. cc: Ernie Howell MD
[2019-09-26] MEDS: NS 500 ML IV SCH ×3 (01:33→21:50)
[2019-09-26] MEDS: MAXIPIME 1 GM in NS 50 ML IV SCH ×3 (01:33→17:53)
[2019-09-26] MEDS: LIORESAL PO SCH ×4 (02:41→20:12)
[2019-09-26] MEDS: TYLENOL PO PRN ×2 (03:58→10:34)
[2019-09-26 05:42] LABS: BASO# 0.01 X1000 (0.0-0.2); BASO% 0.1 % (0.0-0.8); EOS# 0.15 X1000 (0.0-0.7); HEMATOCRIT 29.1 % (42.0-52.0); HEMOGLOBIN 9.4 g/dL (14.0-18.0); IMM GRAN# 0.09 X1000 (0.0-0.04); IMM GRAN% 0.6 % (0.0-0.5); LYMPH# 1.19 X1000 (1.2-3.4); LYMPH% 8.3 % (20.5-51.1); MCH 28.1 PG (27-31); MCHC 32.3 g/dL (33-37); MCV 87.1 FL (81-99); MONO# 0.79 X1000 (0.11-0.59); MONO% 5.5 % (1.7-9.3); MPV 8.8 FL (7.4-10.4); NEUT# 12.12 X1000 (1.4-6.5); NEUT% 84.5 % (42.2-75.2); PLT 378 X1000 (130-400); RBC 3.34 XMIL (4.7-6.1); RDW 13.5 % (11.5-14.5); WBC 14.35 X1000 (4.8-10.8)
[2019-09-26] MEDS: HUMALOG SUBQ SCH ×4 (06:34→20:12)
[2019-09-26 06:49] LABS: CALCIUM 7.8 mg/dL (8.8-10.2); CREATININE 2.8 mg/dL (0.7-1.2); POTASSIUM 4.6 mmol/L (3.5-5.1)
[2019-09-26] MEDS: MIRALAX PO SCH ×2 (10:33→20:12)
[2019-09-26] MEDS: LIPITOR PO SCH (10:34)
[2019-09-26] MEDS: COREG PO SCH ×2 (10:34→20:12)
[2019-09-26] MEDS: ZYVOX PO SCH ×2 (10:34→20:12)
[2019-09-26] MEDS: LASIX IV SCH ×2 (10:35→20:12)
[2019-09-26] MEDS: NORVASC PO SCH (10:35)
--- NOTE | 2019-09-26 13:41 | PROGRESS NOTE ---
DATE: 09/26/2019 SUBJECTIVE: This patient is status post above the knee amputation due to an infected necrosis of the left leg, postoperative day #2. He seems to be doing well. He is alert and oriented x3. He is tolerating p.o. For now we will continue with same management. Infectious Disease Department has recommended to continue antibiotics until tomorrow, I had an extensive conversation with the patient about rehab, but since he is paraplegic, he will think about it. He was able to transfer from the bed to the wheelchair by himself, so probably we need to try to do that here as well. OBJECTIVE: Vital Signs: Temperature 97.5 degrees, pulse 77, respiratory rate 14, blood pressure 140/65, oxygen saturation 96 on room air. HEENT: Head normocephalic, no trauma, PERRLA. Neck: Supple. No JVD. No masses. Central trachea. Chest: Clear to auscultation. No wheezing. No rales. Abdomen: Soft, nontender, nondistended. No hepatosplenomegaly. Extremities: Left AKA with dressing with no signs of bleeding. He is paraplegic, he is complaining of some muscle spasm. Neurological: He is paraplegic, but he is alert and oriented, and he was having some problem with confusion. He is answering all of my questions today. LABORATORY: WBC 14, hemoglobin 9.4, hematocrit 29.1, platelet 378,000, sodium 136, potassium 4.6, chloride 98, bicarbonate 26, BUN 51, creatinine 2.8, glucose 130, calcium 7.8. ASSESSMENT AND PLAN: 1. Infected necrosis of the left leg, status post above the knee amputation, postoperative day #2. The patient seems to be doing well. He tolerated well the procedure. He is paraplegic, but he can feel some pain. I have requested physical therapy and occupational therapy evaluation since this patient was able to transfer from the bed to the wheelchair and also to the commode, we will continue with antibiotics until tomorrow. 2. Fluid overload with lower extremity edema, continue with the same management. He has been on Lasix and his extremity edema has been significantly better. 3. Acute on chronic kidney disease, this is getting better. Continue with diuretics. 4. Type 2 diabetes. Blood sugar decreased compared with yesterday and today is well controlled. We will continue with the same management. 5. Elevated troponins, no chest pain or shortness of breath. No acute coronary syndrome. 6. Anemia. We will monitor. He received 3 PRBCs. Hemoglobin stable. 7. History of coronary artery disease with no chest pain. 8. T8 and T9 rupture lesion with paraplegia, aware. cc: Lino Perez MD
--- NOTE | 2019-09-26 14:02 | PROGRESS NOTE ---
DATE: 09/26/2019 SUBJECTIVE: Mr. Eliceo Contreras is status post left pbpnk-hvu-[id number] amputation per Dr. Howell. He is now postop day 2. His heart rate is 77, blood pressure 140/65, O2 saturation 96%. He is afebrile. He is tolerating about 50% of his meal. His white blood cell count is 14, hematocrit is 29%. BUN and creatinine are 51 and 2.8. We will leave his dressing in place as long as it remains dry and intact. cc: Mine Oswald MD
[2019-09-26] MEDS: DULCOLAX PR PRN (17:49)
[2019-09-27] MEDS: LIORESAL PO SCH ×4 (01:49→20:06)
[2019-09-27 05:27] LABS: BASO# 0.03 X1000 (0.0-0.2); BASO% 0.3 % (0.0-0.8); EOS# 0.15 X1000 (0.0-0.7); EOS% 1.3 % (0.0-10.0); HEMATOCRIT 28.4 % (42.0-52.0); HEMOGLOBIN 9.1 g/dL (14.0-18.0); IMM GRAN# 0.08 X1000 (0.0-0.04); IMM GRAN% 0.7 % (0.0-0.5); LYMPH# 0.98 X1000 (1.2-3.4); LYMPH% 8.2 % (20.5-51.1); MCV 87.4 FL (81-99); MONO# 0.61 X1000 (0.11-0.59); MONO% 5.1 % (1.7-9.3); MPV 8.8 FL (7.4-10.4); NEUT# 10.15 X1000 (1.4-6.5); NEUT% 84.4 % (42.2-75.2); PLT 358 X1000 (130-400); RBC 3.25 XMIL (4.7-6.1); RDW 13.4 % (11.5-14.5)
[2019-09-27 06:11] LABS: CALCIUM 7.9 mg/dL (8.8-10.2); CREATININE 2.7 mg/dL (0.7-1.2); POTASSIUM 4.7 mmol/L (3.5-5.1)
[2019-09-27] MEDS: MAXIPIME 1 GM in NS 50 ML IV SCH (06:31)
[2019-09-27] MEDS: HUMALOG SUBQ SCH ×4 (06:39→20:06)
--- NOTE | 2019-09-27 10:08 | PROGRESS NOTE ---
DATE: 09/27/2019 SUBJECTIVE: This patient is status post [id number] amputation due to an infected necrosis of the left leg, postoperative day #3. He seems to be doing better. He is alert and oriented x3. Family members at the bedside. I will continue with antibiotics, but they will be stopped today. I had a conversation with the patient and the family member at the bedside about rehab. He was able to transfer from the bed to the wheelchair by himself, and he is not sure if he can do that at this moment. Physical Therapy on board. I will talk to the social media specialist and case management rn tomorrow to see if we can help him and send him to a rehab center if he qualifies. OBJECTIVE: Vital Signs: Temperature 98.4 degrees, pulse 90, respiratory rate 14, blood pressure 153/67, oxygen saturation 96 on nasal cannula. HEENT: Head normocephalic. No trauma. PERRLA. Neck: Supple. No JVD. No masses. Central trachea. Chest: Clear to auscultation. No wheezing. No rales. Abdomen: Soft, nontender, nondistended. No hepatosplenomegaly. Extremities: Left AKA with a dressing with no signs of bleeding. He is paraplegic. He is complaining of some muscle spasm, which is chronic. Neurological: He is paraplegic. He is alert and oriented x3. No focal deficits, except for paraplegia. He is answering all my questions. LABORATORY DATA: WBC 12, hemoglobin 9.1, hematocrit 28.4, platelets 358,000. Sodium 137, potassium 4.7, chloride 100, bicarbonate 25, BUN 51, creatinine 2.7, glucose 130, calcium 7.9. ASSESSMENT AND PLAN: 1. Infected necrosis of the left leg, status post [id number]-[id number] amputation, postoperative day #3. The patient seems to be doing well. He tolerated well the procedure. He is paraplegic, but he can feel some pain. I have requested Physical Therapy and Occupational Therapy evaluation since this patient was able to transfer himself from the bed to the wheelchair, and also probably to the commode. Will continue with antibiotics, which will be stopped today per Infectious Disease Department. 2. Fluid overload with lower extremity edema. Continue with the same management. He has been tolerating his Lasix. The lower extremity edema has resolved. 3. Acute on chronic kidney disease. I believe this is now his baseline. Will continue to monitor. 4. Type 2 diabetes. Blood sugar has been stable. 5. Elevated troponin, but no chest pain or shortness of breath. No acute coronary syndrome. 6. Anemia. Will monitor. He received already 3 packed red blood cells. Hemoglobin is stable. 7. History of coronary artery disease with no chest pain. 8. T8 and T9 rupture lesion with paraplegia. Aware. 9. Constipation. Continue with the same management. cc: Lino Perez MD
[2019-09-27] MEDS: NORVASC PO SCH (10:22)
[2019-09-27] MEDS: LASIX IV SCH ×2 (10:22→20:06)
[2019-09-27] MEDS: COREG PO SCH ×2 (10:22→20:06)
[2019-09-27] MEDS: LIPITOR PO SCH (10:22)
[2019-09-27] MEDS: MIRALAX PO SCH ×2 (10:23→20:08)
[2019-09-27] MEDS: ZYVOX PO SCH (10:23)
[2019-09-28] MEDS: LIORESAL PO SCH ×4 (02:12→20:24)
[2019-09-28 05:36] LABS: HEMATOCRIT 28.2 % (42.0-52.0); HEMOGLOBIN 9.2 g/dL (14.0-18.0); MCHC 32.6 g/dL (33-37); MPV 8.8 FL (7.4-10.4); RBC 3.17 XMIL (4.7-6.1); RDW 13.8 % (11.5-14.5)
[2019-09-28 05:59] LABS: CREATININE 2.6 mg/dL (0.7-1.2); POTASSIUM 4.4 mmol/L (3.5-5.1)
[2019-09-28] MEDS: HUMALOG SUBQ SCH ×4 (06:00→20:30)
[2019-09-28] MEDS: MIRALAX PO SCH ×2 (09:12→20:24)
[2019-09-28] MEDS: NORVASC PO SCH (09:13)
[2019-09-28] MEDS: LASIX IV SCH ×2 (09:13→11:00)
[2019-09-28] MEDS: COREG PO SCH ×2 (09:13→20:24)
[2019-09-28] MEDS: LIPITOR PO SCH (09:13)
--- NOTE | 2019-09-28 13:02 | PROVIDER PROGRESS NOTE ---
Progress Note Subjective: voices sleeping well, no uremic complaints. Objective: vitals. Temperature 97.6, pulse 80, respirations 18, blood pressure 145/56, 02 sat 95% on room air. General: Elderly white male lying in bed eating breakfast in no acute distress. HEENT: normocephalic, atraumatic, pupils equal and reactive, mucous membranes moist, trachea midline Skin: warm and dry, multiple bruises in different healing stages Neck: supple, 6 cm JVD. Cardiovascular: S1S2, with a soft systolic decrescendo murmur heard best at left sternal border. Respiratory: clear with equal air excursion bilaterally Abdominal: sodt, non distended, non tender, bowel sounds active : non inspected Extremities: left above knee amputation noted, no clubbing or cyanosis noted Neurological: alert and oriented to person, place, and time. Labs: WBC 10, hemoglobin 9.2, hematocrit 28.2, platelet count 344, sodium 140, potassium 4.4, chloride 102, carbon dioxide 27, anion gap 11, BUN 47, creatinine 2.6, calcium 8.0. Intake 1060, output 1200. Impression: Chronic kidney disease stage 4. He is at his baseline. We will sign off but please call if his clinical condition changes. rg Blood pressure. stable. Anemia. Low but stable. Acid base balance and electrolytes. Stable. Nutrition. Hypoalbuminemia related to inflammation and kidney disease. Will monitor. Fluid volume. Euvolemic on exam, continues on lasix. Medications reviewed. No change.
--- NOTE | 2019-09-28 15:03 | PROGRESS NOTE ---
DATE: 09/28/2019 SUBJECTIVE: This patient is feeling better. He does have weakness. He is status post above-the- knee amputation due to an infected necrosis of the left leg, postoperative day #4. He seems to be better. OBJECTIVE: Vital Signs: Temperature 97.8 degrees, pulse 81, respiratory rate 19, blood pressure 142/57, oxygen saturation 97% on room air. HEENT: Head normocephalic. No trauma. PERRLA. Neck: Supple. No JVD. No masses. Central trachea. Chest: Clear to auscultation. No wheezing. No rales. Abdomen: Soft, nontender, nondistended. No hepatosplenomegaly. Extremities: Left AKA with a dressing with no signs of bleeding. He is paraplegic. He is complaining of some muscle spasm, which is chronic. Neurological: Like I mentioned before, he is paraplegic. He is alert. He is oriented. He does have some generalized weakness. He is answering to all my questions. LABORATORY DATA: WBC 10, hemoglobin 9.2, hematocrit 28.2, platelets 344,000. Sodium 140, potassium 4.4, chloride 102, bicarbonate 27, BUN 47, creatinine 2.6, glucose 119, calcium 8. ASSESSMENT AND PLAN: 1. Infected necrosis of the left leg, status post [id number] amputation, postoperative day #4. The patient seems to be recovering well. He tolerated well the procedure. He is paraplegic, but he can feel some pain, and he is having spasms, which are chronic. Physical Therapy and Occupational Therapy on board. The plan is to send this patient to a rehab center, and he agreed with that. 2. Fluid overload with lower extremity edema, better. Continue with oral Lasix. 3. Acute on chronic kidney disease, back to his baseline. Will continue to monitor. 4. Type 2 diabetes. Blood sugar has been stable. 5. Elevated troponin, but no chest pain or shortness of breath. No acute coronary syndrome. 6. Anemia. Will monitor. He received already 3 packed red blood cells. Hemoglobin is stable. 7. History of coronary artery disease with no chest pain. Aware. 8. T8 and T9 rupture lesion with paraplegia. Aware. 9. Constipation. Continue with the same management. cc: Lino Perez MD
[2019-09-28] MEDS: LASIX PO SCH (20:24)
--- NOTE | 2019-09-28 21:30 | GENERAL SURGERY PROGRESS NOTE ---
DATE: 09/28/2019 SUBJECTIVE: Doing well. No fevers overnight. Minimal pain. He is voiding currently. No drainage on his dressing. I reviewed his labs. OBJECTIVE: On exam he is alert in no acute distress. White count is down to 10. Creatinine is about the same at 2.6, hematocrit 28 and stable. ASSESSMENT AND PLAN: A 64-year-old gentleman status post left above-knee amputation for severe infection of his leg. He is doing well. We will recheck his wound tomorrow prior to going to rehab. Otherwise, continue physical therapy. cc: Ernie Howell MD
[2019-09-29] MEDS: LIORESAL PO SCH ×4 (02:14→20:54)
[2019-09-29] MEDS: HUMALOG SUBQ SCH ×4 (06:16→21:16)
[2019-09-29] MEDS: COREG PO SCH ×2 (09:42→20:53)
[2019-09-29] MEDS: NORVASC PO SCH (09:42)
[2019-09-29] MEDS: LASIX PO SCH ×2 (09:42→20:53)
[2019-09-29] MEDS: LIPITOR PO SCH (09:42)
[2019-09-29] MEDS: MIRALAX PO SCH ×2 (09:42→20:53)
--- NOTE | 2019-09-29 13:46 | PROGRESS NOTE ---
DATE: 09/29/2019 SUBJECTIVE: No acute events overnight. This patient is feeling better. OBJECTIVE: Vital Signs: Temperature 98 degrees, pulse 81, respiratory rate 16, blood pressure 162/64, oxygen saturation 98 on room air. HEENT: Head normocephalic. No trauma. PERRLA. Neck: Supple. No JVD. No masses. Central trachea. Chest: Clear to auscultation. No wheezing. No rales. Abdomen: Soft, nontender, nondistended. No hepatosplenomegaly. Extremities: Left AKA. He is not using a dressing today and the wound looks fine. It has some mónica. He is paraplegic. He is complaining of some muscle spasms on and off, which is chronic. Neurological Examination: This patient is paraplegic. He is alert. He is oriented. He does have some generalized weakness. He is answering to all my questions. Laboratory: Glucose 113. ASSESSMENT AND PLAN: 1. Infected necrosis of the left leg, status post above the knee amputation. Postoperative day #5. The patient seems to be recovering well. He tolerated well the procedure. He is paraplegic but he can feel some pain and he is having spasm, which is chronic. Physical therapy and occupational therapy on board. The plan is to send this patient to a rehab center. 2. Fluid overload with lower extremity edema, better. Continue with the same management. 3. Acute on chronic kidney disease, back to his baseline. 4. Type 2 diabetes, stable. 5. Elevated troponin with no chest pain or shortness of breath. No acute coronary syndrome. 6. Anemia. We will monitor. He received 3 units of packed red blood cells. His hemoglobin is stable. 7. History of coronary artery disease with no chest pain. Aware. 8. T8 and T9 rupture lesion with paraplegia. Aware. 9. Constipation. Continue with the same management for now. He is having bowel movement. cc: Lino Perez MD
--- NOTE | 2019-09-29 21:53 | GENERAL SURGERY PROGRESS NOTE ---
DATE: 09/29/2019 SUBJECTIVE: He is doing well. No complaints. Having some difficulty urinating, which he says is chronic. No fevers. No tachycardia. OBJECTIVE: Blood pressure 148/60. Extremities: His left vhfla-att-tocd amputation site is healing well. LABORATORY DATA: White count was normal yesterday. Glucose has been okay. ASSESSMENT/PLAN: We are going to check a bladder scan of his bladder. Otherwise, from a surgical perspective, he is fine to go to rehab whenever cleared medically. cc: Ernie Howell MD
[2019-09-30] MEDS: LIORESAL PO SCH ×4 (01:19→20:40)
[2019-09-30] MEDS: HUMALOG SUBQ SCH ×4 (06:11→20:41)
[2019-09-30] MEDS: COREG PO SCH ×2 (08:13→20:40)
[2019-09-30] MEDS: LIPITOR PO SCH (08:13)
[2019-09-30] MEDS: LASIX PO SCH ×2 (08:13→20:40)
[2019-09-30] MEDS: MIRALAX PO SCH ×2 (08:13→20:41)
[2019-09-30] MEDS: NORVASC PO SCH (08:13)
[2019-09-30] MEDS: DULCOLAX PR PRN (13:55)
--- NOTE | 2019-09-30 23:12 | PROGRESS NOTE ---
DATE: 09/30/2019 SUBJECTIVE: No acute events overnight. The patient is feeling better. OBJECTIVE: Vital signs: Temperature 97.7 degrees, pulse 80, respiratory rate 13, blood pressure 148/58, oxygen saturation 98% on room air. HEENT: Head normocephalic. No trauma. PERRLA. Neck supple. No JVD. No masses. Central trachea. Chest clear to auscultation. No wheezing. No rales. Abdomen is soft, nontender, nondistended. No hepatosplenomegaly. Extremities: Left AKA. His wound looks fine. He has some mónica. He is paraplegic. He is complaining of some muscle spasm on and off, which is chronic. Neurological: The patient is paraplegic. He is alert. He is oriented. He is following commands. LABORATORY DATA: No lab work done today. Glucose 165. ASSESSMENT AND PLAN: 1. Infected necrosis of the left leg, status post [id number]-[id number] amputation. Postoperative day #6. The patient seems to be recovering well. He tolerated well the procedure. He is paraplegic, but he can feel some pain and he is having spasm, which is chronic. Physical Therapy and Occupational Therapy on board. The plan is to send this patient to a rehab center, hopefully tomorrow. 2. Fluid overload with lower extremity edema, better. Continue with same management. 3. Xniff-rr-zbxtcbr kidney disease, back to his baseline. 4. Type 2 diabetes, stable. 5. Elevated troponin, with no chest pain or shortness of breath. No signs of acute coronary syndrome. 6. Anemia. We will monitor. He received 3 units of packed red blood cells and his hemoglobin has been stable afterwards. 7. History of coronary artery disease, with no chest pain. Aware. 8. T8 and T9 ruptured lesion with paraplegia, aware. 9. Constipation. Continue with the same management for now. It looks like he is having bowel movements. cc: Lino Perez MD
[2019-10-01] MEDS: LIORESAL PO SCH ×2 (02:02→08:23)
[2019-10-01] MEDS: HUMALOG SUBQ SCH ×2 (06:18→12:01)
[2019-10-01 08:19] VITALS: BP 155/60
[2019-10-01] MEDS: NORVASC PO SCH (08:23)
[2019-10-01] MEDS: LASIX PO SCH (08:23)
[2019-10-01] MEDS: COREG PO SCH (08:23)
[2019-10-01] MEDS: LIPITOR PO SCH (08:23)
[2019-10-01] MEDS: MIRALAX PO SCH (08:24)
--- NOTE | 2019-10-01 13:04 | DISCHARGE SUMMARY ---
ADMISSION DATE: 09/22/2019 DISCHARGE DATE: DISCHARGE DIAGNOSES: 1. Infected necrosis of the left leg, status post above the knee amputation, postoperative day #7. 2. Fluid overload with lower extremity edema, better. 3. Acute on chronic kidney disease, resolved, back to baseline. 4. Type 2 diabetes, stable. 5. Elevated troponins on presentation. No signs of chest pain or acute coronary syndrome. 6. Anemia, status post 3 units of packed red blood cells, stable. 7. History of coronary artery disease with no chest pain. Aware. 8. T8 and T9 ruptured lesion with paraplegia. Aware. 9. Constipation. PROCEDURES PERFORMED: 1. Chest x-ray dated 09/22/2019. Impression: Improved right pleural effusion. No abnormalities. 2. Foot x-ray dated 09/22/2019. Impression: Osteoporosis and arteriosclerosis. The possibility of cellulitis cannot be excluded. 3. Lower extremity CT scan dated 09/22/2019. Impression: Subcutaneous and soft tissue edema but no well-defined fluid collection. 4. Chest x-ray dated 09/23/2019. Impression: Negative exam. HOSPITAL COURSE: This is a 64-year-old, male with a past medical history of paraplegia secondary to T8-T9 ruptured lesion, coronary artery disease, systolic heart failure, melanoma of the right axilla, status post excision with lymph node removal, hypertension, diabetes, degenerative disk disease, hyperlipidemia, chronic pain syndrome. Reported that for 2 weeks, he was having an infection and he has been treated by his PCP. He was admitted on 09/22/2019. He went to the emergency department at [facility] before coming here and they offered him admission. However, he refused. He was given IV antibiotics at that time. However, his left lower extremity has continued to worsen. It is more erythematous with eschar and redness has gone up, all the way up to the inner thigh. He has some necrotic lesions also. He was admitted for IV antibiotics and infectious disease department evaluation as well as wound care. He was placed on aggressive antibiotics. Due to his acute on chronic kidney disease, nephrology department was consulted and they monitored this patient closely. We put this patient on Lasix. His swelling and fluid overload were better, as well as his kidney dysfunction. He seems to be doing good. Since this leg was not getting better, surgery department evaluated this patient. On 09/24/2019, the decision for a left above the knee amputation was made so he was taken to the operating room and the procedure was performed. He spent a couple days a little bit confused but then he recovered completely. We continued with a little bit of antibiotics for a few days and then we stopped it. His vital signs have been stable, as well as his laboratory. He was able to transfer from the bed to the wheelchair or to the commode when he was at home but now, he has generalized weakness and we have decided to send this patient to a rehab center. Upon discharge, he will follow up with the primary care provider in 3 weeks. Also, he will need to follow up with the surgery department, Dr. Steffen Howell, in 3 to 4 weeks again as well. Please, the mónica need to be removed in 10 days or so, as long as the wound looks fine. PHYSICAL EXAMINATION: Vital Signs: Temperature 97.4 degrees, pulse 77, respiratory rate 21, blood pressure 155/60, oxygen saturation 98 on room air. HEENT: Head normocephalic. No trauma. PERRLA. Neck: Supple. No JVD. No masses. Central trachea. Chest: Clear to auscultation. No wheezing. No rales. Abdomen: Soft, nontender, nondistended. No hepatosplenomegaly. Extremities: Limited sensation. He is able to feel some pain but not too much. He has paraplegia. He has trace right lower extremity edema with a left AKA. Mónica are in place and they seem to be good. Neurological Examination: The patient is paraplegic. He is alert and he is oriented x3. No more focal deficits. LABORATORY DATA: Glucose 162. DISCHARGE MEDICATIONS: Acetaminophen 650 p.o. q.6 hours as needed, amitriptyline 10 mg p.o. t.i.d., amlodipine 5 mg p.o. b.i.d., aspirin 81 mg p.o. daily, atorvastatin 40 mg p.o. daily, baclofen 20 mg p.o. q.6 hours, Dulcolax 10 mg per rectal q.6 hours as needed for constipation, carvedilol 6.25 mg p.o. b.i.d., furosemide 40 mg p.o. b.i.d., iron 1 capsule p.o. daily, and MiraLAX 17 g p.o. b.i.d. TIME SPENT: Time discharging this patient, 40 minutes. cc: Lino Perez MD
[2019-10-01] MEDS ORDERED: NORVASC PO SCH (21:00)
== END 2019-10-01 13:51 | DRG 240 ==
LOC: ED 11:11 → 1N 15:02
PROVIDERS: ATTEND Internal Medicine

== ENCOUNTER 2020-02-12 16:03 | Inpatient (IN) ==
[2020-02-12] MEDS ORDERED: ZYVOX 600 MG/D5W 600 MG/300 ML IVPB IV ONE (16:52)
[2020-02-12] MEDS ORDERED: MAXIPIME 1 GM in NS 50 ML IV ONE (16:52)
--- NOTE | 2020-02-12 17:14 | Diag Imaging Result Doc PS360 ---
LOWER LEG-RIGHT, FOOT COMPLETE RIGHT - 02/12/2020 INDICATION: fall, distal tibia fracture TECHNIQUE: Two views of the right lower leg, three views of the right foot COMPARISON: None FINDINGS: There is severe diffuse pedal edema worse at the foot. There is severe diffuse peripheral arterial disease of all the arteries of the lower extremity. There appears to be a nondisplaced fracture through the distal tibia and distal fibula. These are oblique and located in the distal shaft near the ankle. At the foot, there is subtle deformity of the calcaneus. A nondisplaced fracture here cannot be excluded. Remainder of the foot is grossly intact. IMPRESSION: 1. Oblique nondisplaced fractures through the distal tibia and fibula. 2. Subtle deformity of the calcaneus. A fracture here cannot be excluded. Recommend dedicated calcaneus x-rays. Electronically signed by Mann Root 02/12/2020 5:12 PM
--- NOTE | 2020-02-12 17:15 | Diag Imaging Result Doc PS360 ---
CHEST-1 VIEW - 02/12/2020 INDICATION: leg injury, pre-op COMPARISON: 09/23/2019 FINDINGS: The lungs are normally expanded and clear. Heart size and mediastinal contours are normal. No pneumothorax or pleural effusion. IMPRESSION: Negative exam. Electronically signed by Mann Root 02/12/2020 5:12 PM
--- NOTE | 2020-02-12 17:35 | PROVIDER DOCUMENTATION ---
This chart was entered by Eb Ceballos Scribe, acting as scribe for Finesse Crook MD. HPI-General Adult - General Source: patient - History of Present Illness -Gen Adult Nature of Presenting Problems: Pt is a 64 y/o M presents to the ED with right lower leg pain after falling out of his wheelchair 1.5 weeks ago. Pt was sent from urgent care to follow up. Pt says he fell forward out of chair injuring his right foot and lower leg. Location of Pain/Injury: reports: lower extremity (right), feet Pain Radiation: reports: no radiation Quality of Pain: reports: aching Severity: reports: moderate Onset/Duration: reports: other (1.5 weeks) Modifying Factors: improves with: nothing Associated Symptoms: denies: cough, fever/chills, shortness of breath Similar Symptoms Previously?: No Recently seen or treated by another doctor?: No <Finesse Crook - Last Filed: 02/12/20 17:34> <Andrés Go - Last Filed: 02/12/20 18:16> - General Chief Complaint: Extremity Injury Stated Complaint: R-LEG INJURY/FALL OUT OF CHAIR LAST WEEK@HOME Time Seen by Provider: 02/12/20 16:27 Allergies/Adverse Reactions: Patient Allergies Allergy/AdvReac Type Severity Reaction Status Date / Time No Known Allergies Allergy Verified 02/12/20 17:10 Home Medications: Home Medication List Medication Instructions Recorded Confirmed Last Taken Type Aspirin [Aspir-Low] 81 mg PO DAILY 09/13/19 02/12/20 02/12/20 History Atorvastatin Calcium [Lipitor] 40 mg PO DAILY 09/13/19 02/12/20 02/12/20 History Furosemide 40 mg PO BID 09/13/19 02/12/20 02/12/20 History Amlodipine [Norvasc] 5 mg PO BID tab 10/01/19 02/12/20 02/12/20 Rx Baclofen [Lioresal] 20 mg PO Q6HR tab 10/01/19 02/12/20 02/12/20 Rx Bisacodyl [Dulcolax] 10 mg [place] Q6H PRN PRN supp 10/01/19 02/12/20 Unknown Rx Review of Systems - Adult - REVIEW OF SYSTEMS - ADULT Constitutional: denies: chills, fever Eyes: reports: no symptoms reported Ears, Nose, Mouth & Throat: reports: no symptoms reported Cardiovascular: denies: chest pain Respiratory: denies: shortness of breath, wheezing Gastrointestinal: denies: nausea, vomiting Genitourinary: reports: no symptoms reported Musculoskeletal: reports: bone pain (foot) Integumentary: reports: skin sores/ulcer. denies: hives, rash Neurological: denies: dizziness/vertigo, headache/migraines Psychiatric: reports: no symptoms reported Endocrine: reports: no symptoms reported Hematologic/Lymphatic: reports: no symptoms reported Allergic/Immunologic: reports: no symptoms reported All Other Systems: Reviewed and Negative <Finesse Crook - Last Filed: 02/12/20 17:34> Past History - Adult - PAST MEDICAL HISTORY-ADULT Review of Records: reports: Old Records Reviewed, Nursing Assessment Review, Medications Reviewed Major Childhood Illnesses: reports: denies history Cardiovascular: reports: denies history Respiratory: reports: denies history Gastrointestinal: reports: denies history Genitourinary: reports: denies history Musculoskeletal: reports: denies history Neurological: reports: denies history Endocrine/Immune: reports: Diabetes (NIDDM) - PRIOR SURGERIES/PROCEDURES Surgical/Procedure History: reports: other (back, lympectomy, and stent) - IMMUNIZATION STATUS Childhood Immunizations: See Nurse Assessment Flu Vaccine: See Nurse Assessment - FAMILY HISTORY Family History: reviewed, not pertinent - SOCIAL HISTORY Smoking: non-smoker, quit greater than 1 year Living Situation: family <Finesse Crook - Last Filed: 02/12/20 17:34> Physical Exam-General - PHYSICAL EXAM-ADULT Initial Vital Signs Reviewed: Yes - CONSTITUTIONAL General Appearance: alert, no apparent distress - EYES Eyes: PERRL/EOMI, pink conjunctivae - NECK Neck: non-tender, full range of motion, supple - RESPIRATORY Respiratory: lungs clear, normal breath sounds, no pleuratic chest pain, no respiratory distress, no accessory muscle use - CARDIOVASCULAR Cardiovascular: normal peripheral pulses, regular rate, rhythm - MUSCULOSKELETAL Back Exam: normal inspection, no CVA tenderness, no vertebral tenderness Extremity: erythema (right lower extremity swollen and hot covering the foot up the leg to below the calf with blistering over the dorsum of toes 4 out of 5), other (above the knee amputation of left). negative: normal gait, normal inspection - SKIN Integumentary: normal color, normal turgor, warm/dry - NEUROLOGIC Neurologic: grossly normal, no motor/sensory deficits - PSYCHIATRIC Psych/Mental Status: normal mood/affect, normal thought content, normal thought process, oriented x 3 <Finesse Crook - Last Filed: 02/12/20 17:34> Progress - PLAN OF CARE/RESULTS Progress/Plan/Lab Results: Vital Signs - 8 hr 02/12/20 16:19 Temperature 98.4 F Pulse Rate 86 Respiratory Rate 18 Blood Pressure 192/82 O2 Sat by Pulse Oximetry 96 - REASSESSMENT Reassessment #1 Time Reassessed: 17:22 Status: improving (given IVF, IV zyvox and maxipime after review of last admission with similar event occuring in left leg) - EKG 1 Time of EKG reading by physician:: 17:22 EKG Read and Signed by:: Finesse Crook EKG Interpretation (*Must complete 3 of following elements*): Normal Rate: 79 Rhythm: nsr [place]: normal QRS: normal, other (high voltage) [place] Interval: normal ST Wave: normal Prior EKG Comparison: unchanged from prior - XRAY 1 XRAY Study: Chest Impression: Normal, See EMR Report ( CHEST-1 VIEW - 02/12/2020 INDICATION: leg injury, pre-op COMPARISON: 09/23/2019 FINDINGS: The lungs are normally expanded and clear. Heart size and mediastinal contours are normal. No pneumothorax or pleural effusion. IMPRESSION: Negative exam. Electronically signed by Mann Root 02/12/2020 5:12 PM 02/12/20 1712 Interpreting Physician: Mann Root MD Dictated Date/Time: 02/12/20 171 cc: Finesse Crook MD; Darrel Avila MD) Comparison with other Films: no changes 2 XRAY: Right XRAY Study: Tibia/Fibula, Foot Impression: Abnormal, See EMR Report ( LOWER LEG-RIGHT, FOOT COMPLETE RIGHT - 02/12/2020 INDICATION: fall, distal tibia fracture TECHNIQUE: Two views of the right lower leg, three views of the right foot COMPARISON: None FINDINGS: There is severe diffuse pedal edema worse at the foot. There is severe diffuse peripheral arterial disease of all the arteries of the lower extremity. There appears to be a nondisplaced fracture through the distal tibia and distal fibula. These are oblique and located in the distal shaft near the ankle. At the foot, there is subtle deformity of the calcaneus. A nondisplaced fracture here cannot be excluded. Remainder of the foot is grossly intact. IMPRESSION: 1. Oblique nondisplaced fractures through the distal tibia and fibula. 2. Subtle deformity of the calcaneus. A fracture here cannot be excluded. Recommend dedicated calcaneus x-rays. Electronically signed by Mann Root 02/12/2020 5:12 PM 02/12/20 1712 Interpreting Physician: Mann Root MD Dictated Date/Time: 02/12/20 1710 cc: Finesse Crook MD; Darrel Avila MD) - CONSULTS/PCP/HOSPITALIST Notification #1 *Consult/PCP/Hospitalist*: [facility], ortho Time Discussed: 16:59 Reason/Comments: well padded posterior splint, leaving the toes open Consult Disposition: other (will follow) #2 Consult: Walker, surgery Time Discussed: 17:03 Consult Disposition: other (will f-u on floor, he'll choose if any study is needed) - CHANGE OF SHIFT REPORT (ED Provider) 1 Report Given and Care Transferred to:: [facility] Time of Transfer: 18:00 Items Pending: Labs, Physician Consult/Arrival <Finesse Crook - Last Filed: 02/12/20 17:34> - PLAN OF CARE/RESULTS Progress/Plan/Lab Results: Vital Signs - 8 hr 02/12/20 16:19 Temperature 98.4 F Pulse Rate 86 Respiratory Rate 18 Blood Pressure 192/82 O2 Sat by Pulse Oximetry 96 Laboratory Results - last 24 hr 02/12/20 02/12/20 02/12/20 17:17 17:25 17:25 WBC RBC Hgb Hct MCV MCH MCHC RDW Std Deviation Plt Count MPV Immature Gran % (Auto) Neut % (Auto) Lymph % (Auto) [place] % (Auto) Eos % (Auto) Baso % (Auto) Immature Gran # (Auto) Neut # (Auto) Lymph # (Auto) [place] # (Auto) Eos # (Auto) Baso # (Auto) Sodium 143 Potassium 4.3 Chloride 103 Carbon Dioxide 29 Anion Gap 11 BUN 32 H Creatinine 2.1 H Estimated GFR/1.73 m2 32 BUN/Creatinine Ratio 15 Glucose 180 H POC Glucose 180 H Calculated Osmolality 296 Calcium 8.6 L Total Bilirubin 0.35 AST 11 ALT 10 Alkaline Phosphatase 82 Troponin T High Sens C-Reactive Prot, Quant 33.36 H Total Protein 5.9 L Albumin 3.3 L Globulin 2.6 Albumin/Globulin Ratio 1.3 Plasma Lactate 0.8 Acetone Level NEGATIVE 02/12/20 02/12/20 17:25 17:25 WBC 5.67 RBC 3.59 L Hgb 10.0 L Hct 30.1 L MCV 83.8 MCH 27.9 MCHC 33.2 RDW Std Deviation 13.5 Plt Count 238 MPV 9.8 Immature Gran % (Auto) 0.0 Neut % (Auto) 68.2 Lymph % (Auto) 20.1 L Oliver % (Auto) 9.2 Eos % (Auto) 2.1 Baso % (Auto) 0.4 Immature Gran # (Auto) 0.00 Neut # (Auto) 3.87 Lymph # (Auto) 1.14 L Oliver # (Auto) 0.52 Eos # (Auto) 0.12 Baso # (Auto) 0.02 Sodium Potassium Chloride Carbon Dioxide Anion Gap BUN Creatinine Estimated GFR/1.73 m2 BUN/Creatinine Ratio Glucose POC Glucose Calculated Osmolality Calcium Total Bilirubin AST ALT Alkaline Phosphatase Troponin T High Sens 97 H C-Reactive Prot, Quant Total Protein Albumin Globulin Albumin/Globulin Ratio Plasma Lactate Acetone Level Orders Category Date Time Status Finger Stick Blood Sugar (ED) DIRECTED Care 02/12/20 16:33 Active Nursing- Obtain EKG once Care 02/12/20 16:34 Active OCL Splint DIRECTED Care 02/12/20 17:00 Active CHEST-1 VIEW [RAD] Stat Exams 02/12/20 16:32 Completed FOOT COMPLETE RIGHT [RAD] Stat Exams 02/12/20 16:32 Completed LOWER LEG-RIGHT [RAD] Stat Exams 02/12/20 16:32 Completed ACETONE SERUM [CHEM] Stat Lab 02/12/20 17:25 Completed BLOOD CULTURE [BLDCUL] Stat Lab 02/12/20 17:15 Received C REACTIVE PROT QUANT [CHEM] Stat Lab 02/12/20 17:25 Completed CBC WITH ELECTRONIC DIFF [HEME] Stat Lab 02/12/20 17:25 Completed COMPREHENSIVE METABOLIC PANEL [CHEM] Stat Lab 02/12/20 17:25 Completed LACTATE, PLASMA [CHEM] Stat Lab 02/12/20 17:25 Completed PRO B-NATRIURETIC PEPTIDE Stat Lab 02/12/20 17:25 Received PROTIME WITH INR [COAG] Stat Lab 02/12/20 17:30 Ordered PTT [COAG] Stat Lab 02/12/20 17:30 Ordered TROPONIN T HIGH SENSITIVITY Stat Lab 02/12/20 17:25 Completed URINALYSIS W/POSS RFLX CULT [URINALYSIS] Stat Lab 02/12/20 16:34 Uncollected WOUND CULTURE INC GRAM STAIN [RM] Routine Lab 02/12/20 17:30 Received CefEPIME [Maxipime] 1 gm Med 02/12/20 16:52 Discontinued 0.9% Sodium Chloride Inj [Ns] 50 ml IV NOW Linezolid 600 mg/D5w [Zyvox 600 mg/D5w] Med 02/12/20 16:52 Active 600 mg in 300 ml IV NOW EKG [EKG] Stat Ther 02/12/20 16:34 Ordered Result Diagrams: 02/12/20 17:25 02/12/20 17:25 <Andrés Go - Last Filed: 02/12/20 18:16> Procedures - SPLINTING Right Lower Extremity Pre-Procedure Neurovascular Exam: Abnormal (d/t paraplegia) Splint Application (Hand-Made): Short, Posterior OCL (well padded, with toes exposed) Applied By: dermatology technician Assisted By: dermatology technician <Finesse Crook - Last Filed: 02/12/20 17:34> Departure - Departure Certified Medical Emergency: Emergent - Critical Care Note This patient required my direct & personal management of CC.: No <Finesse Crook - Last Filed: 02/12/20 17:34> - Departure Date of Disposition Decision: 02/12/20 Time of Disposition Decision: 18:15 Certified Medical Emergency: Emergent <Andrés Go - Last Filed: 02/12/20 18:16> - Departure DIAGNOSIS: Cellulitis of right foot, Skin ulcer of right foot including toes with fat layer exposed, Paraplegia Closed fracture of distal end of right fibula and tibia Qualifiers: Encounter type: initial encounter Qualified Code(s): S82.831A - Other fracture of upper and lower end of right fibula, initial encounter for closed fracture; S82.301A - Unspecified fracture of lower end of right tibia, initial encounter for closed fracture Coronary artery disease Qualifiers: Coronary Disease-Associated Artery/Lesion type: [place] artery [place] vs. transplanted heart: [place] heart Associated angina: without angina Qualified Code(s): I25.10 - Atherosclerotic heart disease of [place] coronary artery without angina pectoris Fall involving wheelchair as cause of accidental injury Qualifiers: Encounter type: initial encounter Qualified Code(s): W05.0XXA - Fall from non- moving wheelchair, initial encounter Disposition: ADMITTED INPATIENT 09 Condition: Fair Referrals and Follow-Ups: Darrel Avila MD [Primary Care Provider] - Attestation - Physician/ SHILPA Attestation Patient care was provided by Advanced Practice Provider:: No The physician spent face to face time with patient:: Yes Advanced Practice Provider documentation review:: Supervising physician onsite and consulted in the evaluation and care of this patient. The physician did have a face to face encounter with the patient. <Andrés Go - Last Filed: 02/12/20 18:16> This chart was documented by the indicated scribe, (Eb Ceblalos Scribe) and accurately reflects the services I performed and decisions made by me, Finesse Crook MD, as attested by the provider's signature.
[2020-02-12 17:49] LABS: BASO# 0.02 X1000 (0.0-0.2); BASO% 0.4 % (0.0-0.8); EOS# 0.12 X1000 (0.0-0.7); EOS% 2.1 % (0.0-10.0); HEMATOCRIT 30.1 % (42.0-52.0); LYMPH# 1.14 X1000 (1.2-3.4); LYMPH% 20.1 % (20.5-51.1); MCH 27.9 PG (27-31); MCHC 33.2 g/dL (33-37); MCV 83.8 FL (81-99); MONO# 0.52 X1000 (0.11-0.59); MONO% 9.2 % (1.7-9.3); MPV 9.8 FL (7.4-10.4); NEUT# 3.87 X1000 (1.4-6.5); NEUT% 68.2 % (42.2-75.2); PLT 238 X1000 (130-400); RBC 3.59 XMIL (4.7-6.1); RDW 13.5 % (11.5-14.5); WBC 5.67 X1000 (4.8-10.8)
[2020-02-12 18:11] LABS: AGAP 11; ALB/GLOB RATIO 1.3; ALBUMIN 3.3 g/dL (3.5-5.0); ALKALINE PHOSPHATASE 82 U/L (32-122); BUN 32 mg/dL (8-22); C REACTIVE PROT QUANT 33.36 mg/L (0.00-5.00); CALCIUM 8.6 mg/dL (8.8-10.2); CHLORIDE 103 mmol/L (98-107); COSMO 296; CREATININE 2.1 mg/dL (0.7-1.2); ESTIMATED GFR 32; GLUCOSE 180 mg/dL (70-104); GOT 11 U/L (10-34); GPT 10 U/L (10-44); POTASSIUM 4.3 mmol/L (3.5-5.1); SODIUM 143 mmol/L (136-145); TCO2 29 mmol/L (25-35); TOTAL BILIRUBIN 0.35 mg/dL (0.20-1.00); TOTAL PROTEIN 5.9 g/dL (6.3-8.3)
[2020-02-12 18:14] LABS: ACETONE SERUM NEGATIVE (NEGATIVE)
[2020-02-12 18:23] LABS: URINE SOURCE CLEAN CATCH
[2020-02-12 18:26] LABS: BILIRUBIN URINE NEGATIVE (NEGATIVE); BLOOD URINE TRACE (NEGATIVE); COLOR YELLOW; GLUCOSE URINE 100 mg/dL (NEGATIVE); KETONE URINE NEGATIVE (NEGATIVE); LEUKOCYTES URINE NEGATIVE (NEGATIVE); NITRITE URINE NEGATIVE (NEGATIVE); PH URINE 6.5; PROTEIN URINE 300 mg/dL (NEGATIVE); SP GRAVITY URINE 1.015; TURBIDITY URINE CLEAR (CLEAR); UROBILINOGEN URINE NORMAL (NORMAL)
[2020-02-12 18:28] LABS: UR EPITHELIAL CELLS <10 /HPF (<10); URINE BACTERIA NEGATIVE /HPF; URINE RBC <10 /HPF (<10); URINE WBC <10 /HPF (<10)
[2020-02-12 18:53] LABS: INR 0.9; PROTIME 12.2 Seconds (11.0-16.0)
[2020-02-12 18:55] LABS: PTT 40.1 Seconds (22.3-41.8)
--- NOTE | 2020-02-12 19:31 | EKG Report ---
Test Performed on : 02/12/2020 5:01:17 PM Test Reason : fall Blood Pressure : / mmHG Vent. Rate : 079 BPM Atrial Rate : 079 BPM P-R Int : 172 ms QRS Dur : 092 ms QT Int : 382 ms P-R-T Axes : 071 001 038 degrees QTc Int : 438 ms Normal sinus rhythm. Normal ECG When compared with ECG of 22-SEP-2019 11:51, No significant change was found Unconfirmed Result
[2020-02-12] MEDS ORDERED: LIORESAL PO ONE (21:26)
[2020-02-12] MEDS ORDERED: NORVASC PO ONE (21:26)
[2020-02-12] MEDS ORDERED: COREG PO ONE (21:32)
[2020-02-13] MEDS ORDERED: ZOFRAN IV PRN (01:05)
[2020-02-13] MEDS ORDERED: TYLENOL PO PRN (01:07)
[2020-02-13] MEDS ORDERED: VANCOMYCIN IV PER PHARMACY MISC SCH (01:15)
[2020-02-13] MEDS ORDERED: VANCOMYCIN 1,700 MG in NS 250 ML IV ONE (03:00)
[2020-02-13] MEDS: LIORESAL PO PRN ×2 (04:32→11:44)
[2020-02-13 06:36] LABS: BASO# 0.05 X1000 (0.0-0.2); BASO% 0.9 % (0.0-0.8); EOS# 0.11 X1000 (0.0-0.7); EOS% 1.9 % (0.0-10.0); HEMATOCRIT 29.5 % (42.0-52.0); HEMOGLOBIN 9.8 g/dL (14.0-18.0); LYMPH# 1.41 X1000 (1.2-3.4); LYMPH% 24.9 % (20.5-51.1); MCH 27.9 PG (27-31); MCHC 33.2 g/dL (33-37); MONO# 0.62 X1000 (0.11-0.59); MONO% 10.9 % (1.7-9.3); MPV 9.5 FL (7.4-10.4); NEUT# 3.48 X1000 (1.4-6.5); NEUT% 61.4 % (42.2-75.2); PLT 243 X1000 (130-400); RBC 3.51 XMIL (4.7-6.1); RDW 13.4 % (11.5-14.5); WBC 5.67 X1000 (4.8-10.8)
[2020-02-13 07:10] LABS: ALB/GLOB RATIO 1.1; CREATININE 2.2 mg/dL (0.7-1.2); POTASSIUM 4.3 mmol/L (3.5-5.1); TOTAL BILIRUBIN 0.36 mg/dL (0.20-1.00); TOTAL PROTEIN 5.8 g/dL (6.3-8.3)
--- NOTE | 2020-02-13 07:27 | HISTORY AND PHYSICAL ---
ADDENDUM: This is an addendum to the dictated Nurse Practitioner hospitalist history and physical note. The patient is a 64-year-old who presented with a fall in the last 1-1/2 weeks. The patient states that he was sitting down, was feeling sleepy and then he fell forward from his wheelchair. He hit his head and he had a wound on his right leg. Of note, the patient is status post left above-knee amputation. The patient did not come to the hospital, but initially noted some redness about the right calf and pain as well. The redness worsened and the pain also worsened, and that necessitated the patient coming in 1-1/2 weeks after the fall. The patient has a history of frequent falls. He falls like 3 times per month. In the ER, imaging of the right leg shows an oblique fracture of the tibia and fibula, and also concern for cellulitis as well. Orthopedics was consulted to evaluate the patient, and a backslab was placed on the right leg, and the patient was started on antibiotics for the right leg cellulitis. I agree with IV vancomycin the patient is placed on. The plan will be to rule out DVT as well of the right leg and to do a venous duplex ultrasound of the right leg. We will wait for Orthopedic recommendations given the oblique nondisplaced distal tibia-fibula fracture noted as well. The patient is noted to have troponinemia but this does not appear new as he seems to have chronic troponinemia. We will trend troponins to make sure that there is no uptrending of troponin levels. I agree with history and physical notes as dictated by the nurse practitioner, and also orders as well. We will discharge the patient when medically stable. [facility]
--- NOTE | 2020-02-13 07:34 | EKG Report ---
Test Performed on : 02/13/2020 06:40:36 AM Test Reason : Elevated Troponin Blood Pressure : / mmHG Vent. Rate : 081 BPM Atrial Rate : 081 BPM P-R Int : 202 ms QRS Dur : 094 ms QT Int : 388 ms P-R-T Axes : 068 016 040 degrees QTc Int : 450 ms Normal sinus rhythm. Normal ECG When compared with ECG of 12-FEB-2020 17:01, (Unconfirmed) No significant change was found Confirmed by Kasandra BROWN, Jean-Paul Polanco ([id number]) on 02/16/2020 9:39:11 AM
[2020-02-13] MEDS ORDERED: COLACE PO SCH (09:00)
[2020-02-13] MEDS ORDERED: LASIX PO SCH (09:00)
[2020-02-13] MEDS ORDERED: LIPITOR PO SCH (09:00)
[2020-02-13] MEDS ORDERED: MIRALAX PO SCH (09:00)
[2020-02-13] MEDS ORDERED: NORCO-7.5 PO PRN (09:38)
--- NOTE | 2020-02-13 10:55 | HISTORY AND PHYSICAL ---
PRIMARY CARE PROVIDER: Dr. Darrel Avila. CHIEF COMPLAINT: Right lower extremity pain. HISTORY OF PRESENT ILLNESS: Mr. Contreras is a 64-year-old male who is does have a history of bilateral lower extremity paraplegia secondary to a T8-T9 rupture lesion, coronary artery disease, systolic congestive heart failure, hypertension, diabetes mellitus type 2, and chronic pain. The patient is wheelchair bound. He has had a left bpubs-esf-qnbz amputation of his left lower extremity that was performed just recently in September 2019 secondary to infected necrosis of his left leg. The patient reports that approximately a week and half ago that he did have a fall from his wheelchair and did get his leg caught on his wheelchair somehow and did end up in the floor. He states he did have some initial swelling and some slight erythema as well as pain to his right lower extremity, though he states that over the last week and half that the pain, erythema and swelling have gotten worse. He reports that the pain has been very intense. Secondary to this, he did present to the ER for further evaluation. From what I understand, he did actually go to an urgent care prior to coming to the ER today. During the fall, the patient did sustain some abrasions to the dorsal portion of his right 1st, 2nd, 3rd, and 4th toes. He did state that he noticed that today his erythema in his right lower extremity has worsened some. The patient does have some movement in his right lower extremity. He is able to wiggle his toes. Other than this, he is not able to have much motor control over this extremity. Though his sensation is intact. Upon evaluation in the ER, vital signs were within normal limits. Blood pressure was elevated. Does have a history of hypertension. He denies any fever, body aches, or chills. He has been afebrile since arrival. His white blood cell count is within normal limits. He does have a history of chronic kidney disease. His creatinine was elevated. This appears to be actually improved from his baseline. His C-reactive protein was elevated at 33.36 and proBNP was 1882. X-ray of his right lower extremity, which included a right lower leg and right complete foot x-ray did show oblique nondisplaced fractures of the distal tibia and fibula. There was subtle deformity in the calcaneus. The fracture here cannot be excluded as well. They recommended a dedicated calcaneus x-ray. Chest x-ray showed no acute abnormalities. The patient denies any headache, dizziness. He denies any chest pain, shortness of breath, or cough. He denies any abdominal pain, nausea, vomiting, diarrhea. Does report occasional problems with constipation. He denies any hematochezia or melena. He is reporting some dysuria but no urinary frequency. He denies any recent history of urinary tract infection. The patient has had a left qyydu-hzg-ahes amputation. He does have reported pain, swelling, erythema to his right lower extremity, though he denies any other pain, new pain, numbness, tingling, or swelling in his other extremities. The patient does report he has some chronic pain and does take baclofen for this on a regular basis at home. He states that he does have spasms in his left hip, left upper leg area. He also denies any recent illnesses. He denies any recent sick contacts with individuals who have had upper respiratory or flu-like symptoms. He also denies any known contact with any individual who has been exposed to or diagnosed with COVID-19. He also denies any recent travel. At this time the patient was placed inpatient admission for evaluation of his right distal tibia fibula fracture as well as right lower extremity cellulitis. REVIEW OF SYSTEMS: A 14 point review of systems was conducted with the patient. All were negative except for pertinent positives mentioned in the HPI. PAST MEDICAL HISTORY: 1. 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 The patient is in a wheelchair. He is unable to walk. However, he does have some movement in the toes of his right lower extremity and his sensation is intact. He, however, has had a recent left gmvqp-nqb-irvr amputation due to infection that was performed in September 2019. 2. Systolic congestive heart failure. 3. Coronary artery disease with myocardial infarction in 2000, status post 3 cardiac stents. 4. Melanoma to the right axilla, status post excision with lymph node removal. 5. Hypertension. 6. Diabetes mellitus type 2. 7. Degenerative disk disease. 8. Hyperlipidemia. 9. Chronic pain syndrome. PAST SURGICAL HISTORY: 1. T6-T7 fusion. 2. Angioplasty x3 in 2000. 3. Right axillary melanoma with lymph node removal. 4. A left crsvp-omi-naks amputation secondary to infection. SOCIAL HISTORY: The patient quit smoking in 2007. He has no known history of tobacco, alcohol or illicit drug use. He lives at home with his and children. As mentioned above, the patient is wheelchair bound secondary to a T8-T9 ruptured lesion which he did have subsequent bilateral lower extremity paraplegia. FAMILY HISTORY: His mother had a history of diabetes, lung cancer and peptic ulcer disease. His father at age 66 secondary to myocardial infarction. ALLERGIES: Patient has no known allergies. HOME MEDICATIONS: 1. Aspirin 81 mg p.o. daily. 2. Lipitor 40 mg p.o. daily. 3. Baclofen 20 mg p.o. q.6 hours for spasms. 4. Dulcolax suppository 10 mg as directed p.r.n. for constipation. 5. Furosemide 40 mg p.o. b.i.d. 6. The patient did state that he did previously take Coreg 6.25 mg p.o. b.i.d., thought this medication had been recently discontinued. DIAGNOSTIC DATA/LABORATORY RESULTS: 1. White blood cell count is 5670, hemoglobin 10, hematocrit 30.1, platelet count is 238,000. PT 12.2, INR 0.9, PTT is 40.1. Sodium 143, potassium 4.3, chloride 103, serum bicarb of 29, BUN 32, creatinine 2.1, GFR 32, glucose 180, calcium 8.6. Liver function tests within normal limits. Troponin T high sensitivity 97. 2. C-reactive protein was 33.36. ProBNP 1182. Plasma lactate 0.8. Serum acetone level was negative. Urinalysis showed positive for protein, glucose, and trace blood, was negative for ketones, nitrites, leukocytes, white blood cells, or bacteria. 3. EKG showed normal sinus rhythm at a rate of 79 with a QTc of 438. 4. Right lower leg x-ray and right foot x-ray did show an oblique nondisplaced fracture through the distal tibia and fibula. There was a subtle deformity of the calcaneus. A fracture could not be excluded. The radiologist did recommend dedicated calcaneus x-ray. 5. Chest x-ray showed no acute abnormalities per Radiology. PHYSICAL EXAMINATION: VITAL SIGNS: Temperature 97.9 degrees, heart rate 80 respirations 18, blood pressure is 166/62, oxygen saturation is 97% on room air. GENERAL: Mr. Contreras is a very pleasant 64-year-old male who is resting in the ER stretcher. He was in no acute distress. He was awake alert and answered questions appropriately. HEENT: Head is atraumatic, normocephalic. Pupils are equal, round, reactive to light, were 3 mm bilaterally and brisk. Oral mucosa is moist. Oropharynx clear. NECK: Supple. Trachea midline. CARDIOVASCULAR: Patient has S1-S2 present. No murmurs, gallops, rubs appreciated with a regular rate and rhythm. PULMONARY: Patient has symmetrical chest expansion bilaterally. Lung sounds are clear to auscultation bilateral full leslie. ABDOMEN: Soft, nontender, nondistended. Bowel sounds are present in all 4 quadrants, were normoactive. EXTREMITIES: No cyanosis noted. The patient does have a noted left lower extremity above the knee amputation. Pedal pulse in right lower extremity was 1+, bilateral radial pulses were 2+. The patient does have a posterior OCL splint noted to his right lower extremity. This did obscure his view from approximately just distal to his ankle up to his knee. Though from what we could observe, the patient did have swelling, erythema, warmth, and pain noted to his right lower extremity. Though, he did have good capillary refill which was less than 3. He does have abrasions noted to the dorsal portion of his right 1st, 2nd, 3rd, and 4th toes. INTEGUMENTARY: The patient's skin is pink, warm, and dry except for above abnormalities mentioned in the extremity exam. NEUROLOGICAL: Patient is alert and oriented to person, place, time, and situation. He has had left bedhh-kkd-bzjf amputation, though he is able to move all extremities. The patient does have noted bilateral lower extremity paraplegia and does have some movement in his right toes, though his sensation is intact. He reports it is at his baseline. ASSESSMENT AND PLAN: 1. Right distal tibia and fibula fractures secondary to a fall from a wheelchair. For treatment of this, the patient did have a posterior OCL splint placed in the ER. He will be NPO after midnight until he is evaluated by Orthopedic surgery. We will provide some p.r.n. pain medication as needed. Dr. Ryan was notified of the patient by [*], the ER physician. We have placed a consult for him in the patient's orders. We will await his evaluation and further recommendations for management. 2. Rule out possible right lower extremity DVT. The patient has had a recent fracture. He does have swelling, warmth, erythema, pain and tenderness upon palpation of his right lower extremity. The patient also does have decreased mobility given his paraplegia and he is wheelchair bound. We have ordered a right lower extremity venous Doppler to be performed. We will await these results and continue to follow. 3. Right lower extremity cellulitis. This is likely the cause of his right lower extremity swelling, erythema and warmth, though as mentioned above, we are going to continue to rule out DVT. We have placed the patient on antibiotic of vancomycin. Blood cultures have been obtained. We will await the results and continue to follow. 4. History of coronary artery disease status post cardiac stent x3. Until he is evaluated by Orthopedic surgery, we will hold any anticoagulants or antiplatelets. Though if the patient is deemed to be not a surgical candidate, he will need his aspirin 81 mg p.o. daily started back. 5. History of hypertension. We will continue the patient's regularly prescribed Norvasc. 6. Acute on chronic kidney disease. The patient does appear to actually be at his baseline and the patient does actually appear to be improved from his previous baseline. We will continue to monitor this closely. We will avoid nephrotoxic medications and renally dose medicines as necessary. 7. Diabetes mellitus type 2. It was reported that the patient has been taken off his oral diabetic medications. We will continue to monitor this closely. We will do pattern fingerstick blood sugars and placed him on a sliding scale insulin. Once he is evaluated by Orthopedic surgery, he can be placed back on a diet by mouth, he will need to be placed on a heart healthy and diabetic diet. 8. History of congestive heart failure. We will continue his Lasix. We will monitor his fluid volume status closely. 9. Hyperlipidemia. We will continue his atorvastatin. 10. Chronic pain syndrome. We have placed orders for p.r.n. pain medication. The patient states normally at home he takes baclofen for assistance with this. We have continued this as well. 11. 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 The patient is wheelchair bound. He has had a recent left pbmxr-ynl-jcek amputation secondary to a left lower extremity infection. The patient does have some movement in the toes of his right lower extremity, though his sensation is still intact bilaterally. 12. Deep vein thrombosis prophylaxis. We are ruling out possible DVT of his right lower extremity given his symptoms and assessment findings. Though at this time, since we are awaiting evaluation by Orthopedic surgery, we will hold any anticoagulants or antiplatelets. We will await orthopedics evaluation before any further VTE prophylaxis decisions are made. 13. Elevated troponin. The patient's troponin was elevated upon initial check in the ER. The patient is denying any chest pain. He does not have any acute EKG changes. This may be secondary to his renal disease. We will go ahead and do a series of cardiac enzymes and repeat EKG in the morning for further evaluation of this. We will continue to follow. The patient has been placed on the surgical floor with telemetry. He will have vital signs every 8 hours with strict intake and output. We will repeat CBC, CMP, and a series of cardiac enzymes in the morning. Further orders and recommendations pending hospital course, diagnostic studies, and physician evaluations. Dictated by KRISTAL Connor for Manpreet Barbour MD
--- NOTE | 2020-02-13 10:58 | ORTHOPAEDICS CONSULTATION ---
DATE: 02/13/2020 CHIEF COMPLAINT: Right lower extremity injury. HISTORY OF PRESENT ILLNESS: Mr. Conrteras is a 64-year-old white male, who had a fall about a week and a half ago. He began having swelling, pain and erythema in his leg and presented to the ER. He was diagnosed with a tib-fib fracture and abrasions on his toes. I was asked to see him in Orthopedic consultation. He was also diagnosed with cellulitis. PAST MEDICAL HISTORY: Includes a T8-T9 rupture resulting in bilateral lower extremity paraplegia and thoracic cord dissection. He is confined to a wheelchair. He does have some sensation and some hip motion of his leg. He has a history of congestive heart failure. He has coronary artery disease. He had an VT in 2000. He has had 3 cardiac stents placed. He had a melanoma excision with a lymph node removal to the right axilla. He has history of hypertension, diabetes type 2, degenerative disk disease, hyperlipidemia, and chronic pain syndrome. PAST SURGICAL HISTORY: Includes a fusion from T6 to T7. He has had angioplasty x3. He has had the axillary melanoma excision. He has had a left kgjqj-uly-ynhs amputation. SOCIAL HISTORY: He has not smoked since 2007. He denies alcohol or drug use. Lives with his and children. FAMILY HISTORY: He has a family history of diabetes, lung cancer, GERD. His father at 66 of an VT. HOME MEDICATIONS: Include Eliquis, Norvasc, aspirin, Lipitor, Baclofen, Coreg, Lasix, torsemide and Cefdinir. REVIEW OF SYSTEMS: Negative, except as noted above. PHYSICAL EXAM: General: Reveals a well-developed, well-nourished male. He is alert and cooperative with exam. HEENT exam: Atraumatic and normocephalic. His pupils are equal, round, reactive to light and accommodation. Neck: His neck is supple. His trachea is midline. Cardiovascular: He has a regular rhythm. Pulmonary: He has a normal breathing pattern. GI: His abdomen is soft. Extremities: He has paraplegia. He has a healed above the knee amputation on the left. His right leg is in a splint. He has some mild erythema, some abrasions on the back of his toes, but otherwise appears stable. Except for his paraplegia, he has no neurologic deficit in his upper extremities. DATA: X-rays of his foot and ankle reveal a very distal nondisplaced tib-fib fracture and a possible nondisplaced calcaneus fracture. IMPRESSION: Right nondisplaced tib-fib fracture with toe abrasions and cellulitis. PLAN: He can be discharged home from an Orthopedic standpoint. We will place him in a cast some time next week. He can be sent home on p.o. antibiotics for the cellulitis if needed. I would recommend he see Dr. Rosales as he is most likely to perform surgery if needed. I do think we could try to treat this non operatively, however. Thank you for allowing me to participate in Mr. Contreras's care. cc: Beau Ryan MD
[2020-02-13 11:28] VITALS: BP 175/63
[2020-02-13] MEDS ORDERED: FLU VACCINE IM ONE (14:22)
[2020-02-13] MEDS ORDERED: PNEUMOVAX 23 IM ONE (14:24)
--- NOTE | 2020-02-13 18:33 | DISCHARGE SUMMARY ---
ADMISSION DATE: 02/12/2020 DISCHARGE DATE: 02/13/2020 DISCHARGE DIAGNOSES: 1. Right nondisplaced tibia and fibula fracture with some toe abrasions and mild cellulitis. 2. Systolic heart failure, chronic. 3. History of coronary artery disease with myocardial infarction in 2000 status post 3 cardiac stents. 4. Melanoma to the right axilla status post excision with lymph node removal. 5. T8/T9 rupture causing bilateral lower extremity paraplegia and thoracic cord dissection currently on a wheelchair. 6. Hypertension. 7. Diabetes. 8. Degenerative disk disease. 9. Hyperlipidemia. 10. Chronic pain syndrome. CONSULTS: Orthopedic Surgery Department Dr. Ryan. HOSPITAL COURSE: 64-year-old male with multiple comorbidities as above, admitted on 02/12/2020, this patient has a left pzgwt-yww-nduw amputation and also he is paraplegic due to T8/9 rupture lesion, apparently he fell from his wheelchair and he got his leg caught on his wheelchair somehow. He had initially swelling and some mild erythema and pain in that extremity, apparently he went to the urgent care. From the fall he has some abrasions at the dorsal portion of the right 1st, 2nd and 3rd and 4th toes with some erythema as well but no secretion. He is able to wiggle his toes but other than that, he is not able to have much more control over his extremities, x-ray showed a distal fracture at the level of the tibia and fibula which is nondisplaced. Orthopedic surgery evaluated this patient. This extremity has been immobilized with a splint, the erythema is really mild and I believe he can be treated as an outpatient. There is no secretion. He will be discharged today. Orthopedic surgery agreed with that. Vital signs: Temperature 98.3 degrees, pulse 80, respiratory rate 18, blood pressure 175/63, oxygen saturation 95 on room air. HEENT: Head normocephalic. No trauma. PERRLA. Neck: Supple. No JVD. No masses. Central trachea. Chest: Clear to auscultation. No wheezing. No rales. Abdomen: Soft, nontender, nondistended. No hepatosplenomegaly. Extremities: No cyanosis. He has a left lower extremity ivtql-mfy-lnjs amputation, he has a splint noted to his right lower extremity, slight swelling at the level of his foot with some lesions on the dorsal aspect of the 1st, 2nd, 3rd and 4th toes with some erythema around it, probably mild cellulitis. Neurological: Awake, alert, oriented. Left ncwna-aoi-rbwq amputation. He is able to move his upper extremities, he noted to have lower extremity paraplegia but he has some movement to his right toes and sensation, as per the patient no big changes. DISCHARGE MEDICATIONS: Basically, he will continue with his home medications and I will add some pain medication and antibiotics. Aspirin 81 mg p.o. daily, atorvastatin 40 mg p.o. daily, Baclofen 20 mg p.o. q.6 hours, Dulcolax 10 mg per rectal q.6 hours as needed, doxycycline 100 mg p.o. b.i.d., furosemide 40 mg p.o. b.i.d., [place] 7.5 one tablet p.o. every 8 hours as needed and MiraLAX 17 g p.o. daily. TIME SPENT: 20 minutes. cc: Lino Perez MD
[2020-02-15] MEDS ORDERED: VANCOMYCIN 1,500 MG in NS 250 ML IV SCH (03:00)
== END 2020-02-13 15:16 | disposition home or self-care (01) | DRG 563 ==
LOC: ED 16:03 → SUATTDRO 23:38 → 4N 23:38
PROVIDERS: ATTEND Internal Medicine